=== PATIENT | female | born 1945 | race African-American/Black ===

== ENCOUNTER 2017-06-16 09:04 | Observation (INO) | payer MEDICARE ==
[2017-06-16] MEDS ORDERED: cefTRIAXone\\ROCEPHIN 2 GM in Sodium Chloride 0.9% 100 ML IVPB SCH (09:45)
[2017-06-16] MEDS ORDERED: Fentanyl 100 MCG/2 ML VIAL ONE ×2 (10:04→16:41)
--- NOTE | 2017-06-16 10:46 | HP ---
HISTORY OF PRESENT ILLNESS: Ms. Schulz is 71-year-old black woman. She went to an outside ER [facility] with complaint of abdominal pain, mainly involving the left flank which she has been having for the last 3 days or so. She was evaluated and she was found to have left-sided hydronephrosis along w ith pyelonephritis. In view of this fact, she was transferred here for evaluation and management. She denies any associated fever and she claim that her problem started about 3 days ago. She denies any associated dysuria. PAST MEDICAL HISTORY: Remarkable for hypertension. About 6 weeks ago, she had bowel obstruction req uired laparotomy with subsequent colostomy. PAST SURGICAL HISTORY: Includes hysterectomy. ALLERGIES: She claims to have allergy to MORPHINE and also ASPIRIN. She described mainly side effec t to these medications. SOCIAL HISTORY: She denies any history of cigarette smoking. Denies ETOH abuse. Denies drug abuse; however, she does chew tobacco. FAMILY HISTORY: Reviewed and is not contributory. MEDICATIONS: Prior to admission she was on Augmentin, Protonix, hydrochlorothiazide, Flagyl, and als o potassium chloride. REVIEW OF SYSTEMS: CONSTITUTIONAL: She denies any fever, denies any weakness. HEENT: No headache, no ocular pain, no sore throat, no rhinorrhea, no earache, no epistaxis. NECK: No neck pain, no ne ck stiffness. CARDIOVASCULAR: No shortness of breath. No chest pain. PULMONARY: No coughing. GA STROINTESTINAL: No nausea, no vomiting, no diarrhea. GENITOURINARY: No dysuria, no hematuria. END OCRINOLOGY: No heat or cold intolerance. No polyuria, polydipsia, or polyphagia. MUSCULOSKELETAL: Admits to arthralgias, arthritis. HEMATOLOGY: No abnormal bleeding, no ecchymosis. LYMPHATICS: N o palpable lymphadenopathy, no painful lymphadenopathy. SKIN: No rash, no itching. ALLERGIES: No hayfever. NEUROLOGIC: No seizure. PSYCHIATRIC: No anxiety, no depression. PHYSICAL EXAMINATION: GENERAL: At the current time. She is alert, oriented, in no distress. VITAL SIGNS: Show temperature of 98.6, pulse rate 66, respiratory rate 16, and blood pressure 147/71 . HEAD: Normocephalic and atraumatic. Both of her pupils are equally reacting. Ears and nose are nor mal. Oral mucosa is moist. Pharyngeal area is clear. NECK: Supple. There is no distention of the jugular vein. No lymphadenopathy felt. Thyroid gland not palpable. There is no carotid bruit. CHEST: Symmetrical with regular S1 and S2. LUNGS: Clear. ABDOMEN: Soft. There is a colostomy bag in place. Bowel sounds heard. EXTREMITIES: Show no edema. NEUROLOGIC: She moves all extremities. LABORATORY DATA: Abdomen CT was reported to show left-sided hydronephrosis with pyelonephritis. As mentioned earlier, CBC and BMP are in progress. ASSESSMENT AND PLAN: This is 71-year-old black woman with history of hypertension, status post colos wang few weeks ago who was admitted with complaint of abdominal pain, found to have left-sided hydron ephrosis with pyelonephritis. Patient will be admitted for observation. We will start her on antibi otics. Urology was consulted from the ER.
[2017-06-16] MEDS ORDERED: Ondansetron ODT 4 MG TAB SL PRN (11:06)
[2017-06-16] MEDS ORDERED: Sodium Chloride 0.9% 1,000 ML IV SCH (11:06)
[2017-06-16] MEDS ORDERED: HYDROcodone/Acetaminophen 5/325 mg Tablet PO PRN ×3 (11:06→22:33)
[2017-06-16] MEDS ORDERED: Ondansetron HCl/PF 4 MG/2 ML Vial IVP PRN ×3 (11:06→17:48)
[2017-06-16] MEDS ORDERED: Acetaminophen 325 MG TAB PO PRN (11:06)
[2017-06-16] MEDS ORDERED: Zolpidem Tartrate 5 MG TAB PO PRN (11:10)
[2017-06-16 11:11] VITALS: BMI 31.7
[2017-06-16 12:13] LABS: Anion Gap 17 mmol/L (10-20); BUN (Urea Nitrogen) Less than 4 mg/dL (9.8-20.1); Calc. Creatinine Clearance 91 mL/min (70-130); Calcium 8.5 mg/dL (7.8-10.44); Carbon Dioxide 20 mmol/L (23-31); Chloride 105 mmol/L (98-107); Estimated GFR-MDRD Greater than 90; Glucose 98 mg/dL (83-110); Potassium 3.8 mmol/L (3.5-5.1); Sodium 138 mmol/L (136-145)
[2017-06-16 12:15] LABS: #Basophils 0.1 thou/uL (0.0-0.2); #Lymphocytes 1.9 thou/uL (1.20-3.40); #Monocytes 0.8 thou/uL (0.11-0.59); #Neutrophils 5.8 thou/uL (1.40-6.50); %Basophils 1.3 % (0.0-1.0); %Eosinophils 0.4 % (0.0-10.0); %Lymphocytes 22.2 % (21.0-51.0); %Monocytes 9.7 % (0.0-10.0); %Neutrophils 66.4 % (42.0-75.0); Hemoglobin 10.3 g/dL (12.0-16.0); Mean Corpuscular HGB CONC 32.6 g/dL (32.0-36.0); Mean Corpuscular Hemoglobin 28.8 pg (27.0-31.0); Mean Corpuscular Volume 88.3 fl (81.0-99.0); Mean Platelet Volume 8.2 fL (7.4-10.4); PLT Morphology Comment PLT clumps seen-LOW; Platelet Count 273 thou/uL (130-400); RBC Distribution Width 13.3 % (11.5-14.5); Red Blood Cell (RBC) Count 3.59 mill/uL (4.20-5.40); White Blood Cell (WBC) Count 8.7 thou/uL (4.8-10.8)
[2017-06-16] MEDS: Sodium Chloride 0.9% 1,000 ML IV SCH ×2 (12:58→22:23)
[2017-06-16] MEDS ORDERED: CEFAZOLIN/Water 2 GM/20 ML SYRINGE SLOW IVP SCH (13:15)
--- NOTE | 2017-06-16 14:08 | RAD ---
PORTABLE UPRIGHT FRONTAL ABDOMEN: Date: 06/16/17 COMPARISON: CT abdomen and pelvis dated 06/16/17. HISTORY: Hydronephrosis. FINDINGS: There is residual contrast media within the renal collecting system bilaterally, as well as within bi lateral proximal ureters and the urinary bladder. The calices are blunted on the left and the left kidney is hydronephrotic. The left ureter is promine nt, visualized to the level of the L5 vertebral body. Neither ureter is opacified within the pelvis. IMPRESSION: Hydronephrosis and hydroureter on the left, etiology uncertain. Ureter below the level of the L5 vert ebral body is not assessed on this examination as it is not opacified. No evidence for a renal stone is seen in this region. CT examination at this time may be beneficial given contrast media within the tract. POS: JARED
[2017-06-16] MEDS ORDERED: PHENYLEPHRINE-NS 100 MCG/ML 10 ML SYRINGE ONE (14:35)
[2017-06-16] MEDS ORDERED: Lidocaine 1% PF 5 ML VIAL ONE (14:35)
[2017-06-16] MEDS ORDERED: ePHEDrine/0.9% NaCl/PF SYRINGE 50 mg/10 ml ONE (14:35)
[2017-06-16] MEDS ORDERED: Propofol 200 MG/20 ML VIAL ONE (14:35)
[2017-06-16] MEDS ORDERED: Ondansetron HCl/PF 4 MG/2 ML Vial ONE (14:35)
[2017-06-16] MEDS ORDERED: CEFAZOLIN/Water 2 GM/20 ML SYRINGE ONE (16:10)
[2017-06-16] MEDS ORDERED: Iothalamate Meglumine 60% 50 ML VIAL FS ONE (16:22)
[2017-06-16] MEDS ORDERED: Midazolam HCl 2 mg/2 ml Vial ONE (16:41)
[2017-06-16] MEDS ORDERED: Promethazine HCl 25 MG/ML VIAL SLOW IVP PRN (17:48)
[2017-06-16] MEDS ORDERED: Promethazine HCl 25 MG/ML VIAL IM PRN (17:48)
--- NOTE | 2017-06-16 17:51 | RAD ---
IVP RETROGRADE: Comparison: CT same day. FINDINGS: Satisfactory placement of a ureteral stent. IMPRESSION: Satisfactory placement of a ureteral stent. POS: JARED
--- NOTE | 2017-06-16 19:39 | CON ---
DATE OF CONSULTATION: 06/16/2017 HISTORY OF PRESENT ILLNESS: This is a 71-year-old -Togolese female whom I was asked to see by the Hospitalist team today for left flank pain and hydronephrosis on CAT scan. She presented to the [facility] this morning with 3 days of left flank pain and it sounds like she had some nausea and vomiting last night. No fevers, no chills, no dysuria. She says she has no t felt right for probably a week or two, but has not had this type of pain except for the last couple of days. On 05/21, she had been up in [facility], in town of [place] and she had developed what so unds like a bowel obstruction there, nausea and vomiting that she put up with for a couple of days an d then went into the hospital on the and it sounds like immediately underwent a laparotomy. I d o not have any reports from them, but according to her, a piece of her large intestine was removed an d they could not do a primary reanastomosis, so she ended up with a left-sided colostomy. She does n ot report any pathology that would suggest it was a cancer. She says she believes she was told it wa s scar tissue from prior operations. The colostomy has been working fine. She did have a visit to [facility] on the first and it sounds like at that point she had a superficial skin dehiscence, b ut not a fascial dehiscence. She has been on some Augmentin since then. She has a dressing over her incision, although on exam, it looks like it is pretty much healed up, so she comes in now with flan k pain. No fever, no chills, no dysuria. No prior history of stone disease or urinary tract infecti ons or blood in her urine. Her urinalysis from this morning showed 0-3 red cells, 0-3 white cells, 1 + yeast. Her chemical survey from this morning showed her creatinine of 0.72 and normal liver functi on tests and her white count was normal at 8.7 with a hemoglobin of 10.3 and a platelet count of 273. There is no microbiology set up, though I have asked the nurses here on the floor to be sure urine culture is set up. She was transferred with a diagnosis of hydronephrosis and pyelonephritis to our facility; I am not sure why the diagnosis of pyelonephritis was made. She has been admitted by the H ospitalist team and they requested the consult. Looking at her vital signs, she has had a normal blo od pressure, normal pulse and appears to have been afebrile in the emergency room. She does mention she had a CAT scan done in [place] and I have reviewed that and I asked Dr. Burkett also reviewed as I cannot get the actual report to come up yet. It was done with IV contrast. There is a delay i n excretion into the left kidney compared to the right. There is, in the right kidney, a partially c alcified very small cystic lesion in the upper pole, which is probably an area of old infarct or inju ry. She does not have any obvious ureteral stone. She has a mildly dilated ureter down to the area of the left pelvis near were she does have some evidence of soft tissue edema and were most likely he r surgical procedure was done. There is nothing to suggest a urinoma currently, cannot see the urete r to be dilated, pass the stone, see an obvious stone in this area, but certainly she does have hydro nephrosis. PAST MEDICAL HISTORY: Includes a partial hysterectomy. She had also a procedure done by Dr. Butler in 2013. It was for a benign upper rectal polyp and she underwent a laparoscopic da Willard robotic l ow anterior resection. She has had some shoulder problems, which she takes occasional pain medicine for shoulder surgery. She has a history of hypercholesterolemia, but does not take any medicines for she has a history of hypertension, but has been off those medicines since her last surgery. She crawford s take occasional pain medication. She has been on Augmentin. ALLERGIES: She has an allergy to MORPHINE, which causes her to hallucinate. SOCIAL HISTORY: She does not smoke, but does dip. She does not drink. PHYSICAL EXAMINATION: ABDOMEN: She currently has no severe left CVA tenderness. Her abdomen is soft and nontender. Colos wang appears to be working well. The lower midline incision is no longer open. The CAT scan showed a fluid collection underneath it, but does not really look like an abscess when examining her; probab ly it is just a fluid collection. She has no inguinal adenopathy. IMPRESSION AND PLAN: Left hydro and left flank pain with a normal urinalysis. The concern would be that this could be related to her recent surgery. It does not appear to be a urinoma. We are going to go ahead at this point and get a KUB to see if the contrast has gone down the left ureter and to w here it stops. I think she would best be served by retrograde and a stent. Hopefully, we can get a stent across this area and then let this heal and leave the stent in for a number of weeks and if we are not able to get a stent in, we will look at doing a percutaneous procedure with Radiology tomorro w. We will give her some Ancef contour stitcher, but does not appear that she has pyelonephritis just hydrone phrosis.
--- NOTE | 2017-06-16 20:03 | OP ---
DATE OF PROCEDURE: 06/16/2017. PREOPERATIVE DIAGNOSIS: Left hydronephrosis. POSTOPERATIVE DIAGNOSIS: Left hydronephrosis. PROCEDURE PERFORMED: Cysto, left retrograde, left stent. SURGEON: Dr. Deep Copeland. ANESTHETIC: General. ESTIMATED BLOOD LOSS: Minimal. FINDINGS: There was no evidence of urethral stenosis or diverticulum or lesion. There were two uret eral orifices in normal position. The bladder was free of tumor, foreign body, or stone. Retrograde study showed a normal distal third of the ureter. At about the pelvic brim, there was an area of na rrowing probably 2-3 cm in length and she was hydronephrotic and mildly tortuous above this. There w as no extravasation noted across this. A 0.038 guidewire easily went by this and a 5 Honduran Pollack catheter easily went by this also. Urine was grossly clear above it. A 6 x 26 Polaris double-J sten t was placed and left indwelling. A string was not left attached to it. OPERATIVE TECHNIQUE: After obtaining written and verbal consent from the patient after receiving IV Ancef, she was taken to the operating suite. She was placed in the supine position on the treatment table. PlexiPulses were placed on her lower extremities and turned on. She was given a general anes thetic, oral obturator intubation. She was placed in the dorsal lithotomy position and sterilely pre pped and draped. A guide plant KUB was taken with the fluoroscopy unit. The contrast that had collected f rom her KUB after her IV contrast was given about 11 hours ago had cleared. The bladder was filled a nd emptied a number of times and was examined with 30 and 70-degree lens. Could not use the video ca lucie and monitor was not working, so it was done under direct vision. A 5-Honduran Pollack catheter wa s flushed with contrast passed into the urinary bladder and placed about a cm up the left ureteral or ifice and contrast was slowly injected in a retrograde manner while fluoroscopy was obtained, images were taken of this. A 0.038 guidewire was fed and across through the 5-Honduran Pollack catheter and u p across the point of narrowing and easily went up into the renal pelvis. The Pollack catheter follo wed this up easily. We injected more contrast up in the renal pelvis to fill it out completely. Aft er removing the guidewire and then replaced the guidewire, removed the Pollack catheter and placed a stent over the guidewire, pushing up into place with aid of a pusher so its proximal end coiled in th e renal pelvis and its distal end coiled in the bladder when the wire was removed. There was no extr avasation noted. Plan will be to leave this stent in for a few weeks, maybe look at changing it out in a month, possibly doing ureteroscopy. My guess is that this probably is related to some edema becca und the ureter in this region from a recent surgery. I would think it would be less likely related t o some type of intrinsic ureteral abnormality such as a cancer of the ureter, although this is a poss ibility the timing of it would make it more suspicious that would be related to her recent surgery. It is certainly not any evidence of a filling defect such as a stone or renal papillae in this region to explain it. She was taken out of dorsal lithotomy position, awakened, extubated, and taken by st [facility] to the recovery room.
[2017-06-16] MEDS: Famotidine/PF 20 mg/2ml Vial SLOW IVP SCH (22:22)
[2017-06-16] MEDS: HYDROcodone/Acetaminophen 5/325 mg Tablet PO PRN (22:40)
[2017-06-17] MEDS: Sodium Chloride 0.9% 1,000 ML IV SCH (05:41)
[2017-06-17 08:24] VITALS: TEMP 98.7
[2017-06-17] MEDS: HYDROcodone/Acetaminophen 5/325 mg Tablet PO PRN (08:41)
[2017-06-17] MEDS: Famotidine/PF 20 mg/2ml Vial SLOW IVP SCH (08:41)
[2017-06-17] MEDS ORDERED: CEFTRIAXONE 2GM/50 ML BAG 2 GM in Premix Bag 1 BAG IVPB SCH (10:00)
[2017-06-17] MEDS ORDERED: cefTRIAXone\\ROCEPHIN 2 GM in Sodium Chloride 0.9% 100 ML IVPB SCH (10:00)
[2017-06-17 12:05] VITALS: BP 155/71
--- NOTE | 2017-06-17 17:43 | DIS ---
DATE OF ADMISSION: 06/16/2017 DATE OF DISCHARGE: 06/17/2017 DISCHARGE DIAGNOSES: Left-sided hydronephrosis with pyelonephritis and hypertension. CONSULTANTS ON THE CASE: Dr. Copeland. DISCHARGE MEDICATIONS: Include all home medications plus Macrobid 100 mg p.o. b.i.d. for 2 weeks. BRIEF HOSPITAL COURSE: A 71-year-old pleasant lady, who was apparently in usual state of health, cam e into the hospital because of abdominal pain. Please refer to the admitting physician's H&P for fur ther details. The patient had a CT scan which showed left-sided hydronephrosis and pyelonephritis. Dr. Copeland evaluated the patient and placed a stent. The patient tolerated the procedure well. He s aid that the patient can be discharged today with outpatient followup with them and on the oral antib iotic. The patient is right now medically stable to be discharged. She is doing much better at the time of discharge. PHYSICAL EXAMINATION: VITAL SIGNS: She has a blood pressure of 132/59, afebrile, pulse is 79, respirations 18. GENERAL: Patient is lying in bed, in no apparent distress. HEENT: Atraumatic, normocephalic. Pupils are equally round and reactive to light. Extraocular move ments are intact. Mucous membranes are moist. NECK: Supple. No JVD. CHEST: Breath sounds. There are no rales or rhonchi. HEART: S1, S2. No murmurs or gallops. ABDOMEN: Soft. Colostomy bag in place. EXTREMITIES: No cyanosis, clubbing, or edema. Distal pulses present. NEUROLOGIC: Alert, awake, oriented. No cranial deficits. No sensorimotor deficits. The patient is right now medically stable to be discharged. She is asked to follow up with PCP and Nicole Copeland as an outpatient. She understands all this. She is asked to come back to the emergency ro om in case symptoms recur. Total time for this discharge took 35 minutes.
== END 2017-06-17 13:05 | disposition home or self-care (01) ==
LOC: ERS 09:04 → 2SW 11:02
PROVIDERS: ADMIT Hospitalist; ATTEND Hospitalist
PROC: 0T778DZ Dilation of Left Ureter with Intraluminal Device, Via Natural or Artificial Opening Endoscopic (ICD-10-PCS; principal; 2017-06-16)
DX: N13.6 Pyonephrosis (principal); I10 Essential (primary) hypertension; K21.9 Gastro-esophageal reflux disease without esophagitis; Z93.3 Colostomy status; E78.00 Pure hypercholesterolemia, unspecified; Z79.2 Long term (current) use of antibiotics; Z79.899 Other long term (current) drug therapy; Z88.5 Allergy status to narcotic agent; Z88.8 Allergy status to other drugs, medicaments and biological substances; Z90.49 Acquired absence of other specified parts of digestive tract; Z90.711 Acquired absence of uterus with remaining cervical stump; Z98.890 Other specified postprocedural states
CPT/HCPCS: 52332; 74018; 74420; 80048; 85025; 96361 ×2; 96365; 96366; 96375 ×2; 96376; 99285; C1758; G0378; J0696; 36415; J2001; J2250; J2405; J2704; J3010; J7050; Q9961; S0028

== ENCOUNTER 2017-07-29 06:44 | Day surgery (SDC) | payer MEDICARE ==
[2017-07-26 11:18] VITALS: BMI 30.9
[2017-07-29 08:50] LABS: INR-International Normal Ratio 1.1; PTT 29.9 SEC (22.9-36.1); Prothrombin Time 14.2 SEC (12.0-14.7)
[2017-07-29 08:51] LABS: #Basophils 0.1 thou/uL (0.0-0.2); #Eosinphils 0.1 thou/uL (0.0-0.7); #Lymphocytes 2.1 thou/uL (1.20-3.40); #Monocytes 0.6 thou/uL (0.11-0.59); #Neutrophils 3.2 thou/uL (1.40-6.50); %Eosinophils 2.3 % (0.0-10.0); %Lymphocytes 34.8 % (21.0-51.0); %Monocytes 9.3 % (0.0-10.0); %Neutrophils 52.6 % (42.0-75.0); Hemoglobin 10.4 g/dL (12.0-16.0); Mean Corpuscular HGB CONC 31.4 g/dL (32.0-36.0); Mean Corpuscular Hemoglobin 27.2 pg (27.0-31.0); Mean Corpuscular Volume 86.6 fl (81.0-99.0); Mean Platelet Volume 8.2 fL (7.4-10.4); Platelet Count 293 thou/uL (130-400); RBC Distribution Width 12.8 % (11.5-14.5); Red Blood Cell (RBC) Count 3.82 mill/uL (4.20-5.40); White Blood Cell (WBC) Count 6.1 thou/uL (4.8-10.8)
[2017-07-29 08:56] LABS: Anion Gap 13 mmol/L (10-20); BUN (Urea Nitrogen) 12 mg/dL (9.8-20.1); Calc. Creatinine Clearance 75 mL/min (70-130); Calcium 9.7 mg/dL (7.8-10.44); Carbon Dioxide 24 mmol/L (23-31); Chloride 102 mmol/L (98-107); Estimated GFR-MDRD 80; Glucose 91 mg/dL (83-110); Potassium 3.7 mmol/L (3.5-5.1); Sodium 135 mmol/L (136-145)
[2017-07-29] MEDS ORDERED: CEFAZOLIN/Water 2 GM/20 ML SYRINGE ONE (10:20)
[2017-07-29] MEDS ORDERED: Fentanyl 100 MCG/2 ML VIAL ONE ×2 (10:28→12:12)
[2017-07-29] MEDS ORDERED: Iothalamate Meglumine 60% 50 ML VIAL FS ONE (10:34)
[2017-07-29] MEDS ORDERED: Furosemide 20 MG/2 ML VIAL ONE (11:06)
[2017-07-29] MEDS ORDERED: Morphine 4 MG/ML Carpuject SLOW IVP PRN (12:14)
[2017-07-29] MEDS ORDERED: Non-Formulary Medication 1 EACH PO PRN (12:14)
[2017-07-29] MEDS ORDERED: Promethazine HCl 25 MG/ML VIAL IM/IV PRN (12:14)
[2017-07-29] MEDS ORDERED: Ondansetron HCl/PF 4 MG/2 ML Vial IVP PRN (12:14)
--- NOTE | 2017-07-29 12:27 | OP ---
DATE OF PROCEDURE: 07/29/2017 PREOPERATIVE DIAGNOSIS: Left ureteral obstruction. POSTOPERATIVE DIAGNOSIS: Left ureteral obstruction. PROCEDURE PERFORMED: Cysto, removal of stent, left retrograde, and replacement of left stent. SURGEON: Dr. Deep Copeland. ANESTHETIC: General. ESTIMATED BLOOD LOSS: Minimal. FINDINGS: There was no evidence of bladder tumor, foreign body, or stone. Old stent was removed; it was still patent. The guidewire went up a bit easy. Retrograde study showed a normal-appearing ure ter with a wire up in place. The wire was removed then in contrast, but not drain pass the mid urete r. On retrograde study, we waited probably 30 minutes to do this and gave her indigo carmine and Las ix. We then injected contrast in a retrograde manner and it goes up to about to just below this area and does not go up easily by it, indicating it is probably an area of obstruction stone in the mid u reter. Guidewires were placed without difficulty. New stent was passed over the guidewire and pushe d up in place with aid of a pusher without difficulty. OPERATIVE TECHNIQUE: After obtaining written and verbal consent from the patient, she was taken to [facility] operating suite. She was given Ancef already. She was given general anesthetic, oral obturator i ntubation, placed in the dorsal lithotomy position and sterilely prepped and draped. Cystoscopy was performed with a 22-Kyrgyz sheath. This was well lubricated and passed under direct vision through [facility] female urethra into the urinary bladder with the aid of a 30-degree lens and a video camera monito r. The bladder was filled and emptied a number of times. The distal end of the indwelling stent was brought out through the urethral meatus. A guidewire was fed up across, so the stent was removed ov er the guidewire and discarded. A 5-Kyrgyz Pollack catheter was flushed with contrast, placed into [facility] left ureteral orifice about a cm up with contrast injected in a retrograde manner filled out this system. The wire was then removed. The distal half of the ureter cleared easily. The proximal half did not. She was given indigo carmine and Lasix. We waited over 20 minutes after this up to closer to 30 minutes without effluxing on this side. We repeated the retrograde study with about 5 mL of c ontrast without the wire across and it went up to the mid ureter, would not go up above it. The guid ewire was then fed back up across this area without difficulty. A stent was passed over this and pus hed up in place with aid of a pusher so its proximal end coiled in the renal pelvis, distal end coile d in the bladder when the wire was removed. The bladder was drained, the instruments were removed. She was taken out of dorsal lithotomy position, awakened, extubated, and taken by stretcher to the re covery room.
--- NOTE | 2017-07-29 14:47 | RAD ---
RETROGRADE URETEROGRAM LEFT URETERAL STENT PLACEMENT. Technique: 17 intraoperative images obtained of the left abdomen. FINDINGS: Images demonstrate placement of a cystoscope with catheterization and injection of the left ureter an d collecting system. There has been placement of a left ureteral stent, proximal portion of the left renal pelvis and the distal portion in the bladder. There is an area of caliber irregularity in the d istal left ureter several centimeters proximal to the left ureterovesicular junction. This may repres ent area of left distal ureteral circumferential mass either extrinsic or within the left ureter. No obvious evidence of obstructing calculi seen. IMPRESSION: Placement of a left ureteral stent across a distal left ureteral area of stenosis. POS: [facility]ARED
[2017-07-29] MEDS ORDERED: Ondansetron HCl/PF 4 MG/2 ML Vial ONE (15:12)
[2017-07-29] MEDS ORDERED: PROPOFOL 200 MG/20 ML VIAL ONE (15:12)
[2017-07-29] MEDS ORDERED: Glycopyrrolate 0.2 MG/ML 5 ML SYRINGE ONE (15:12)
[2017-07-29] MEDS ORDERED: PHENYLEPHRINE-NS 100 MCG/ML 10 ML SYRINGE ONE (15:12)
[2017-07-29] MEDS ORDERED: Dexamethasone 20 MG/5 ML VIAL ONE (15:12)
[2017-07-29] MEDS ORDERED: Lidocaine 1% PF 5 ML VIAL ONE (15:12)
[2017-07-29] MEDS ORDERED: ePHEDrine/0.9% NaCl/PF SYRINGE 50 mg/10 ml ONE (15:12)
== END 2017-07-29 13:21 | disposition home or self-care (01) ==
LOC: SDC 06:44
PROVIDERS: ATTEND Urology
PROC: 0T778DZ Dilation of Left Ureter with Intraluminal Device, Via Natural or Artificial Opening Endoscopic (ICD-10-PCS; principal; 2017-07-29)
DX: N13.5 Crossing vessel and stricture of ureter without hydronephrosis (principal); I10 Essential (primary) hypertension; E78.00 Pure hypercholesterolemia, unspecified; Z88.5 Allergy status to narcotic agent; Z88.8 Allergy status to other drugs, medicaments and biological substances; Z90.49 Acquired absence of other specified parts of digestive tract; Z90.710 Acquired absence of both cervix and uterus; Z98.890 Other specified postprocedural states
CPT/HCPCS: 36415; 74420; 80048; 85025; 85610; 85730; 96374; C1758; J1100; J1940; J2001; J2405; J2704; J3010; Q9961

== ENCOUNTER 2017-10-23 09:46 | Day surgery (SDC) | payer MEDICARE ==
[2017-10-22 10:30] VITALS: BMI 31.8
[2017-10-23 11:14] LABS: Mean Corpuscular HGB CONC 33.3 g/dL (32.0-36.0); Mean Corpuscular Volume 84.3 fl (81.0-99.0); Mean Platelet Volume 7.9 fL (7.4-10.4); Platelet Count 250 thou/uL (130-400); RBC Distribution Width 13.1 % (11.5-14.5); Red Blood Cell (RBC) Count 3.91 mill/uL (4.20-5.40); White Blood Cell (WBC) Count 6.2 thou/uL (4.8-10.8)
[2017-10-23] MEDS ORDERED: CEFAZOLIN/Water 2 GM/20 ML SYRINGE ONE (11:18)
[2017-10-23] MEDS ORDERED: Iothalamate Meglumine 60% 50 ML VIAL FS ONE (12:19)
[2017-10-23] MEDS ORDERED: Fentanyl 100 MCG/2 ML VIAL ONE (12:20)
[2017-10-23] MEDS ORDERED: Ondansetron HCl/PF 4 MG/2 ML Vial ONE (12:46)
[2017-10-23] MEDS ORDERED: Dexamethasone 20 MG/5 ML VIAL ONE (12:46)
[2017-10-23] MEDS ORDERED: PROPOFOL 200 MG/20 ML VIAL ONE (12:46)
[2017-10-23] MEDS ORDERED: Lidocaine 1% PF 5 ML VIAL ONE (12:46)
[2017-10-23] MEDS ORDERED: ePHEDrine/0.9% NaCl/PF SYRINGE 50 mg/10 ml ONE (12:46)
[2017-10-23] MEDS ORDERED: Ketorolac Tromethamine 30 MG/ML VIAL ONE (12:46)
[2017-10-23 12:54] LABS: INR-International Normal Ratio 1.1; PTT 30.4 SEC (22.9-36.1); Prothrombin Time 13.8 SEC (12.0-14.7)
--- NOTE | 2017-10-23 15:10 | RAD ---
RETROGRADE URETEROGRAM: History: Ureteral obstruction. FINDINGS: Intraoperative fluoroscopy was provided for retrograde study as performed by Dr. Rubio. Multiple spo t fluoroscopic images show contrast opacification of a mildly distended left renal collecting system and nondilated ureter. Final image shows double pigtail stent over the course of the left ureter. POS: [facility]
--- NOTE | 2017-10-23 20:35 | EKG ---
Test Reason : PREOP Blood Pressure : / mmHG Vent. Rate : 046 BPM Atrial Rate : 046 BPM P-R Int : 166 ms QRS Dur : 074 ms QT Int : 500 ms P-R-T Axes : 060 -07 076 degrees QTc Int : 437 ms Sinus bradycardia Nonspecific T wave abnormality Abnormal ECG When compared with ECG of 17-AUG-2013 07:06, Nonspecific T wave abnormality no longer evident in Anterior leads Confirmed by MELISSA HAMILTON, . SMarli (4) on 10/23/2017 8:34:56 PM Referred By: LETICIA Confirmed By:DR. Mike TORRES MD
--- NOTE | 2017-10-24 09:16 | OP ---
DATE OF PROCEDURE: 10/23/2017 PREOPERATIVE DIAGNOSIS: Left ureteral obstruction, managed with stent. POSTOPERATIVE DIAGNOSIS: Left ureteral obstruction, managed with stent. PROCEDURE PERFORMED: Cysto, discontinue left stent, left retrograde, left rigid ureteroscopy, biopsy , and left stent replacement. SURGEON: Dr. Deep Copeland. ANESTHETIC: General. ESTIMATED BLOOD LOSS: Minimal. DRAINS: A 6 x 24 Polaris double-J stent without string attached. FINDINGS: There is a 2-3 cm segment of the extending to the mid ureter, just above the pelvic and at the pelvic brim, does not drain well from above or below this. She does have also edema of the uret eral mucosa as we approach this region. I think is probably just related to the stent being, but bio psy of this just below and just above the area of scar was done. OPERATIVE TECHNIQUE: Obtained written and verbal consent from the patient, she was taken the operati ng suite. She was given a general anesthetic, oral obturator intubation. PlexiPulses were placed on her lower extremities and turned on. She was placed in dorsal lithotomy position, sterilely prepped and draped. Cystoscopy was performed with a 22-Austrian sheath. This was well lubricated, passed und er direct vision through the female urethra into the bladder with aid of a 30-degree lens, a video ca lucie and monitor. The bladder was filled and emptied a number of times. At this point, the stent wa s grasped and brought out the ureteral meatus and a guidewire was fed through and the stent was remov ed from the guidewire. A Pollack catheter was then placed over the guidewire and the guidewire was r emoved. The Pollack catheter was a couple of centimeters in. Contrast was injected and we will go u p the ureter and then would stop and come back around, but not go proximal to the region in the lower third to mid ureter. A guide wire would easily go by this contrast. We then set the guidewire by t with the open-ended catheter past this, removed the guidewire and then had filled up the proximal ureter, renal pelvis with contrast and then removed the stent and watched the distal ureter does kali ar, I cannot compensate the proximal ureter ever clears contrast after watching it for a number of mi nutes. For this reason, a guidewire was replaced. We then brought in a small caliber rigid ureteros cope and went adjacent to the guidewire up the ureter with the above findings. You could get the ure teroscope by the area that was obstructed, although there was some probably scarring and some fixatio n to the retroperitoneum in this region, which I think is probably just scarring. We went ahead and used biopsy from just above and just below this region. This was done under direct vision. I did no t try to biopsy this area of white dense material itself, to me it looks like it is most likely just an injury and scar. After this was done, cystoscope and a stent was placed over the guidewire and pushed up in placed with aid of a pusher, so its proximal end coils in the renal pelvis and its d istal end coils in the bladder and the wire was removed. The bladder straining instruments were deidra yocasta. She was taken out of dorsal lithotomy position, awakened, extubated, and taken by stretcher to the recovery room.
== END 2017-10-23 15:30 | disposition home or self-care (01) ==
LOC: SDC 09:46
PROVIDERS: ATTEND Urology
PROC: 0TB78ZX Excision of Left Ureter, Via Natural or Artificial Opening Endoscopic, Diagnostic (ICD-10-PCS; principal; 2017-10-23)
PROC: 0T778DZ Dilation of Left Ureter with Intraluminal Device, Via Natural or Artificial Opening Endoscopic (ICD-10-PCS; 2017-10-23)
PROC: 0TP98DZ Removal of Intraluminal Device from Ureter, Via Natural or Artificial Opening Endoscopic (ICD-10-PCS; 2017-10-23)
DX: N13.5 Crossing vessel and stricture of ureter without hydronephrosis (principal); I10 Essential (primary) hypertension; K21.9 Gastro-esophageal reflux disease without esophagitis; E78.00 Pure hypercholesterolemia, unspecified; F17.220 Nicotine dependence, chewing tobacco, uncomplicated; E78.5 Hyperlipidemia, unspecified; Z79.899 Other long term (current) drug therapy; Z88.5 Allergy status to narcotic agent; Z88.8 Allergy status to other drugs, medicaments and biological substances
CPT/HCPCS: 52332; 52354; 74420; 85027; 85610; 85730; 88305; 88341; 88342; 93005; C1758; 93010; J0131; J1100; J1885; J2001; J2405; J2704; J3010; Q9961

== ENCOUNTER 2018-02-17 10:25 | Outpatient (CLI) | payer MEDICARE, MEDICAID ==
[2018-02-17 11:34] LABS: Hemoglobin 12.3 g/dL (12.0-16.0); Mean Corpuscular HGB CONC 32.3 g/dL (32.0-36.0); Mean Corpuscular Hemoglobin 27.8 pg (27.0-31.0); Mean Corpuscular Volume 86.2 fL (78.0-98.0); Mean Platelet Volume 7.8 fL (7.4-10.4); Platelet Count 314 thou/uL (130-400); RBC Distribution Width 12.1 % (11.5-14.5); Red Blood Cell (RBC) Count 4.41 mill/uL (4.20-5.40); White Blood Cell (WBC) Count 6.4 thou/uL (4.8-10.8)
[2018-02-17 11:39] LABS: Prothrombin Time 13.7 SEC (12.0-14.7)
[2018-02-17 12:00] LABS: Anion Gap 15 mmol/L (10-20); BUN (Urea Nitrogen) 21 mg/dL (9.8-20.1); Calc. Creatinine Clearance 0 mL/min (70-130); Calcium 9.1 mg/dL (7.8-10.44); Carbon Dioxide 22 mmol/L (23-31); Chloride 102 mmol/L (98-107); Estimated GFR-MDRD 59; Glucose 79 mg/dL (83-110); Potassium 3.8 mmol/L (3.5-5.1); Sodium 135 mmol/L (136-145)
--- NOTE | 2018-02-23 14:26 | EKG ---
Test Reason : Blood Pressure : / mmHG Vent. Rate : 049 BPM Atrial Rate : 049 BPM P-R Int : 166 ms QRS Dur : 082 ms QT Int : 472 ms P-R-T Axes : 056 007 068 degrees QTc Int : 426 ms Marked sinus bradycardia Abnormal ECG When compared with ECG of 23-OCT-2017 11:08, No significant change was found Confirmed by MADIHA CATALAN (2) on 02/23/2018 2:26:11 PM Referred By: DAVE Confirmed By:MADIHA CATALAN
== END 2018-02-17 10:26 | disposition home or self-care (01) ==
LOC: LABBT 10:25
PROVIDERS: ATTEND Urology
DX: Z01.818 Encounter for other preprocedural examination (principal); N13.5 Crossing vessel and stricture of ureter without hydronephrosis
CPT/HCPCS: 80048; 85027; 85610; 85730; 93005; 93010

== ENCOUNTER 2018-02-24 06:15 | Day surgery (SDC) | payer MEDICARE, MEDICAID ==
[2018-02-17 10:39] VITALS: BMI 31.8
[2018-02-24] MEDS ORDERED: Fentanyl 100 MCG/2 ML VIAL ONE (06:53)
[2018-02-24] MEDS ORDERED: Iothalamate Meglumine 60% 50 ML VIAL FS ONE ×2 (07:07→08:03)
[2018-02-24] MEDS ORDERED: CEFAZOLIN/Water 2 GM/20 ML SYRINGE ONE (07:29)
--- NOTE | 2018-02-24 09:07 | RAD ---
THREE IMAGES FROM LEFT IVP RETROGRADE EVALUATION: COMPARISON: Prior exam dated 10/23/17. FINDINGS: There is a left double-J ureteral stent. The stent projects within the expected position. The 2nd s ubmitted image demonstrates manipulation of the ureteral stent caudad with the proximal aspect of the stent seen within the distal left ureter. Subsequent final image submitted demonstrates a ureteral stent in place with retrograde opacification of the left renal collecting system. No definite visibl e stone is evident. There is slight prominence of the pelvocaliceal system which is nonspecific. IMPRESSION: 1. Left ureteral stent. 2. Moderate amount of residual contrast within the pevocalyceal system. POS: [facility]
--- NOTE | 2018-02-24 10:37 | OP ---
DATE OF PROCEDURE: 02/24/2018. PREOPERATIVE DIAGNOSIS: Left ureteral obstruction. POSTOPERATIVE DIAGNOSIS: Left ureteral obstruction. PROCEDURE PERFORMED: Cystoscopy, discontinue left stent, left retrograde, left stent replacement. SURGEON: Dr. Deep Copeland. ANESTHETIC: TIVA. ESTIMATED BLOOD LOSS: Minimal. FINDINGS: The bladder was free of tumor, foreign body, or stone. There was a stent in left ureteral orifice. Retrograde study showed contrast going up the ureter and stopping just distal to the sacro iliac joint. It was difficult to get the proximal aspect of this area of narrowing and stricture vis ualized. We took multiple images of this. I think this was just open enough for contrast to get thr ough it, so we did not get contrast to build up enough to see the proximal point well. It appears to be just above or just into the sacroiliac joint region of the bony pelvis proximally. OPERATIVE TECHNIQUE: Obtain written and verbal consent from the patient after receiving IV antibioti cs, she was taken to the operating suite. She was placed in supine position on the treatment table. PlexiPulses were placed on her lower extremities and turned on. She was given a general anesthetic, oral obturator intubation, placed in dorsal lithotomy position, sterilely prepped and draped. Cysto scopy was performed with a 22-[place] sheath. Fluoroscopy was used to obtain images. She was positio salina so that the left side was adequately visualized. The indwelling stent was grasped with a pair of flexible grasping forceps and brought out through the urethral meatus with aid of a video camera mon itor, 30-degree lens and a 22-[place] sheath. A guidewire was fed up this and then a Pollack catheter was fed over the guidewire, so that it was proximal to the stricture and then the wire was removed. Contrast was then used to fill up the collecting system. The renal pelvis and caliceal system were dilated, really cannot get the ureter itself to dilate. As we were injecting, we brought the open-en ded catheter down past the point of the stricture and then we could see where the distal end of the s tricture was easily and image was taken of this. We then refilled the syringe and did this again zhanna cing more contrast proximally and then looking at the images and taking images with the contrast came down the left ureter. We were never able to show extremely well the images showing the proximal ext ent of the stricture, but appears to be over the sacroiliac joint region of the bony pelvis. At the end of this part of the procedure, a guidewire was fed up the left ureter and a stent was placed over the guidewire for a 4.8 x 24 cm placed over it and pushed up into place, so its proximal end coiled in the renal pelvis, distal end coiled in the bladder when the wire was removed string was not left attached. The bladder was drained, instruments were removed. The patient was awakened, extubat ed, and taken by stretcher to the recovery room.
[2018-02-24] MEDS ORDERED: Ondansetron HCl/PF 4 MG/2 ML Vial ONE (13:00)
[2018-02-24] MEDS ORDERED: PROPOFOL 200 MG/20 ML VIAL ONE (13:00)
[2018-02-24] MEDS ORDERED: Lidocaine 1% PF 5 ML VIAL ONE (13:00)
== END 2018-02-24 10:00 | disposition home or self-care (01) ==
LOC: SDC 06:15
PROVIDERS: ATTEND Urology
PROC: 0T778DZ Dilation of Left Ureter with Intraluminal Device, Via Natural or Artificial Opening Endoscopic (ICD-10-PCS; principal; 2018-02-24)
PROC: 0TP98DZ Removal of Intraluminal Device from Ureter, Via Natural or Artificial Opening Endoscopic (ICD-10-PCS; 2018-02-24)
DX: N13.5 Crossing vessel and stricture of ureter without hydronephrosis (principal); I10 Essential (primary) hypertension; Z88.6 Allergy status to analgesic agent; Z88.8 Allergy status to other drugs, medicaments and biological substances
CPT/HCPCS: 52332; 74420; C1758; J3010; Q9961

== ENCOUNTER 2018-06-30 06:13 | Day surgery (SDC) | payer MEDICARE, MEDICAID ==
[2018-06-19 13:46] VITALS: BMI 35.4
[2018-06-30 07:01] LABS: #Basophils 0.1 thou/uL (0.0-0.2); #Eosinphils 0.1 thou/uL (0.0-0.7); #Monocytes 0.6 thou/uL (0.11-0.59); #Neutrophils 3.8 thou/uL (1.40-6.50); %Basophils 1.3 % (0.0-1.0); %Eosinophils 1.9 % (0.0-10.0); %Lymphocytes 30.3 % (21.0-51.0); %Monocytes 9.5 % (0.0-10.0); %Neutrophils 57.1 % (42.0-75.0); Hemoglobin 12.1 g/dL (12.0-16.0); Mean Corpuscular HGB CONC 32.8 g/dL (32.0-36.0); Mean Corpuscular Hemoglobin 28.2 pg (27.0-31.0); Mean Platelet Volume 7.8 fL (7.4-10.4); Platelet Count 308 thou/uL (130-400); RBC Distribution Width 11.8 % (11.5-14.5); White Blood Cell (WBC) Count 6.6 thou/uL (4.8-10.8)
[2018-06-30 07:20] LABS: Anion Gap 11 mmol/L (10-20); BUN (Urea Nitrogen) 25 mg/dL (9.8-20.1); Calc. Creatinine Clearance 58 mL/min (70-130); Calcium 9.8 mg/dL (7.8-10.44); Carbon Dioxide 26 mmol/L (23-31); Chloride 102 mmol/L (98-107); Estimated GFR-MDRD 52; Glucose 101 mg/dL (83-110); Potassium 3.9 mmol/L (3.5-5.1); Sodium 135 mmol/L (136-145)
[2018-06-30] MEDS ORDERED: CEFAZOLIN 2 GM/50 ML BAG ONE (07:35)
[2018-06-30] MEDS ORDERED: Iothalamate Meglumine 60% 50 ML VIAL FS ONE (08:37)
[2018-06-30] MEDS ORDERED: Fentanyl 100 MCG/2 ML VIAL ONE (08:43)
--- NOTE | 2018-06-30 10:49 | OP ---
DATE OF PROCEDURE: 06/30/2018 PREOPERATIVE DIAGNOSIS: Left ureteral obstruction, managed with left ureteral stent. POSTOPERATIVE DIAGNOSIS: Left ureteral obstruction, managed with left ureteral stent. PROCEDURES PERFORMED: Cysto, removal of stent, left retrograde, and left stent replacement. ANESTHETIC: General. ESTIMATED BLOOD LOSS: None. FINDINGS: There was no evidence of bladder tumor, foreign body, or stone. Left-sided ureteral stent in normal position. DRAINS PLACED: A 4.8 x 24 cm left double-J stent without a string attached. OPERATIVE TECHNIQUE: After obtaining written and verbal consent from the patient after receiving IV antibiotics, she was taken to the operating suite. She was placed in the supine position on the treatment table. PlexiPulses were placed on her lower extremities and turned on. She was given a general anesthetic and oral obturator intubation. She was placed in the dorsal lithotomy position and sterilely prepped and draped. Cystoscopy was performed with a 22-[place]izen [place] sheath. This was well lubricated and passed under direct vision through the female urethra into the urinary bladder with aid of video camera and monitor. The bladder was filled and emptied number of times. This was then was examined with both 30 and 70-degree lens. There was no tumor, foreign body, or stone, just a left-sided ureteral stent. The distal end of the stent was grasped with a flexible grasping forceps with aid of a 30-degree lens and video camera and monitor. It was brought out through the ureteral meatus. A guidewire was fed up across this and the stent was removed over a guidewire. A 5-Citizen [place] Milmay catheter was backloaded through the cystoscope and along the guidewire and placed up to the area of the proximal ureter. The wire was removed and contrast was injected probably 15 mL. This revealed the location of the renal pelvis and collecting system and proximal ureter. The wire was replaced. The open-ended catheter was removed and the stent was placed over the guidewire and pushed up into place with the aid of a pusher, so its proximal end coiled in the renal pelvis and its distal end coiled in the bladder when the wire was removed. The bladder was drained. The instruments were removed. She was taken out of dorsal lithotomy position, awakened, extubated, and taken by stretcher to recovery room. Job ID: [id number]
--- NOTE | 2018-06-30 10:51 | RAD ---
RETROGRADE PYELOGRAM: History: Stent placement. FINDINGS: This is a series of five c-arm images which show placement of a left ureteral stent. IMPRESSION: Placement of left ureteral stent which appears to be in good position. POS: TPC
[2018-06-30] MEDS ORDERED: Succinylcholine Chloride 20 MG/ML 10 ml SYRINGE FS ONE (14:16)
[2018-06-30] MEDS ORDERED: Glycopyrrolate 0.2 MG/ML 5 ML SYRINGE ONE (14:16)
[2018-06-30] MEDS ORDERED: PROPOFOL 200 MG/20 ML VIAL ONE (14:16)
[2018-06-30] MEDS ORDERED: Ondansetron PF 4 MG/2 ML Vial ONE (14:16)
[2018-06-30] MEDS ORDERED: Lidocaine 1% PF 5 ML VIAL ONE (14:16)
== END 2018-06-30 11:40 | disposition home or self-care (01) ==
LOC: SDC 06:13
PROVIDERS: ATTEND Urology
PROC: 0T778DZ Dilation of Left Ureter with Intraluminal Device, Via Natural or Artificial Opening Endoscopic (ICD-10-PCS; principal; 2018-06-30)
PROC: 0TP98DZ Removal of Intraluminal Device from Ureter, Via Natural or Artificial Opening Endoscopic (ICD-10-PCS; 2018-06-30)
DX: N13.5 Crossing vessel and stricture of ureter without hydronephrosis (principal); K21.9 Gastro-esophageal reflux disease without esophagitis; I10 Essential (primary) hypertension; F17.220 Nicotine dependence, chewing tobacco, uncomplicated; E78.5 Hyperlipidemia, unspecified; Z79.899 Other long term (current) drug therapy; Z88.5 Allergy status to narcotic agent; Z88.8 Allergy status to other drugs, medicaments and biological substances
CPT/HCPCS: 52332; 74420; 80048; 85025; C1758; 36415; J2001; J2405; J2704; J3010; Q9961

== ENCOUNTER 2018-09-02 04:23 | Emergency (ER) | payer MEDICARE, MEDICAID ==
[2018-09-02 05:16] LABS: #Eosinphils 0.1 thou/uL (0.0-0.7); #Lymphocytes 1.5 thou/uL (1.20-3.40); #Monocytes 0.6 thou/uL (0.11-0.59); #Neutrophils 6.1 thou/uL (1.40-6.50); %Basophils 0.3 % (0.0-1.0); %Eosinophils 0.6 % (0.0-10.0); %Lymphocytes 18.5 % (21.0-51.0); %Monocytes 7.1 % (0.0-10.0); %Neutrophils 73.5 % (42.0-75.0); Hemoglobin 12.2 g/dL (12.0-16.0); Mean Corpuscular Hemoglobin 28.2 pg (27.0-31.0); Mean Corpuscular Volume 85.6 fL (78.0-98.0); Mean Platelet Volume 7.8 fL (7.4-10.4); Platelet Count 311 thou/uL (130-400); RBC Distribution Width 11.9 % (11.5-14.5); Red Blood Cell (RBC) Count 4.33 mill/uL (4.20-5.40); White Blood Cell (WBC) Count 8.2 thou/uL (4.8-10.8)
[2018-09-02 05:39] LABS: ALT (SGPT) 36 U/L (8-55); AST (SGOT) 66 U/L (5-34); Albumin 3.9 g/dL (3.4-4.8); Alkaline Phosphatase 71 U/L (40-150); Anion Gap 13 mmol/L (10-20); BUN (Urea Nitrogen) 20 mg/dL (9.8-20.1); Bilirubin, Total 0.9 mg/dL (0.2-1.2); Calc. Creatinine Clearance 0 mL/min (70-130); Calcium 9.6 mg/dL (7.8-10.44); Carbon Dioxide 24 mmol/L (23-31); Chloride 100 mmol/L (98-107); Estimated GFR-MDRD 51; Globulin 4.3 g/dL (2.4-3.5); Glucose 124 mg/dL (83-110); Lipase 68 U/L (8-78); Potassium 3.9 mmol/L (3.5-5.1); Protein, Total 8.2 g/dL (6.0-8.3); Sodium 133 mmol/L (136-145)
--- NOTE | 2018-09-02 08:03 | ULT ---
FRight upper quadrant ultrasound CLINICAL INDICATION: Pain FINDINGS: No focal hepatic lesion. Gallbladder wall is thickened at 5-6 mm with pericholecystic edema . There is increased echogenicity of the gallbladder lumen with shadowing, compatible with cholelithi asis. Common duct is borderline in size at 7 mm. No ascites is visualized. IMPRESSION: Sonographic findings indicative of cholecystitis with associated cholelithiasis. Recommen d surgical consultation for further assessment. Borderline size common duct. Correlate with biliary laboratory values.
[2018-09-02] MEDS ORDERED: Piperacillin/Tazobactam 3.375 GM VIAL ONE (08:22)
--- NOTE | 2018-09-02 08:22 | CT ---
CT OF THE ABDOMEN AND PELVIS WITH CONTRAST: INDICATION: Abdominal pain. FINDINGS: Lung bases are grossly clear aside from mild volume loss. There is wall prominence and hypodensity o f the gallbladder, which is moderately distended. No focal hepatic or splenic lesion. There is a le ft double-J ureteral stent with mild prominence of the left renal pelvis. There is a stable calcific ation at the anterior aspect of the superior pole right kidney indicating a complex cystic lesion, al though incompletely evaluated on the basis of this exam. Left lower quadrant ostomy is again seen. The bowel is incompletely evaluated without the presence of enteric contrast. There is no disseminat ed free air. Suture material is again seen within the posterior pelvis which is mildly distended by retained fecal material. No acute osseous pathology is seen. IMPRESSION: 1. Left double J ureteral stent is in place. There is mild distention of the left renal pelvis with a slight urothelial prominence. Recommend clinical correlation in this regard 2. Stable small partially calcified cystic-appearing lesion of the superior pole right kidney. 3. Left lower quadrant ostomy remains without obvious associated inflammation. 4. Findings which may relate to cholecystitis, incompletely assessed as discussed above. Recommend dedicated gallbladder ultrasound. POS: JOSE
[2018-09-02] MEDS ORDERED: Fentanyl 100 MCG/2 ML VIAL ONE (08:26)
[2018-09-02] MEDS ORDERED: ISOVUE-370 76%-LOCM 1 ML ONE (09:20)
--- NOTE | 2018-09-02 10:33 | HP ---
HISTORY OF PRESENT ILLNESS: Ms. Schulz is a 73-year-old woman, presented to emergency department with insidious onset of postprandial epigastric abdominal pain, which started approximately 2000 hours after dinner consisting of barbecue ribs, coleslaw, and corn. Pain was described as sharp, rated at 8/10 and radiating to her back. Pain was associated with one episode of nausea, but no emesis. She admits to some chills, but no fevers. The pain has not been relieved with over the counter remedies. She did take a dose of [place], which she normally takes for chronic pain without any relief. Currently, she is awake and alert. She has received intravenous analgesics here in the emergency department, now rates the pain at 5/10. PAST MEDICAL HISTORY: Pertinent for essential hypertension and gastroesophageal reflux disease. PAST SURGICAL HISTORY: Pertinent for partial abdominal hysterectomy through a low Pfannenstiel incision, laparoscopic DaVinci robotic low anterior resection five years ago, multiple left ureteral stent placements for urethral obstruction, and emergency exploratory laparotomy with resultant colostomy one year ago in [place], [place]. SOCIAL HISTORY: The patient lives at home independently. She dips tobacco. She denies any cigarette smoking or illicit drug abuse. She used to drink alcohol heavily, but currently does not indulge. PRE-HOSPITAL MEDICATIONS: Includes; 1. Hydrochlorothiazide 25 mg p.o. daily. 2. Pantoprazole 40 mg p.o. daily. 3. Potassium 99 mg p.o. daily. 4. Vitamin D3 1000 units p.o. daily. 5. Hydrocodone 10 mg p.o. q.6 hours p.r.n. pain. ALLERGIES: TO ASPIRIN AND MORPHINE. FAMILY HISTORY: Noncontributory for this patient's age. REVIEW OF SYSTEMS: Ten-point review of systems essentially unremarkable except as stated in past medical history and chief complaint. PHYSICAL EXAMINATION: GENERAL: This reveals a 73-year-old normally developed woman, who is otherwise coherent and interactive and appears stated age. The patient is alert and oriented x3. She appears to be in no acute distress at the time of my evaluation. VITAL SIGNS: Today include blood pressure 148/66, pulse 63, respiratory rate is 19, temperature 98.1 degrees Fahrenheit, oxygen saturation is 100% on room air. HEENT: Reveals normocephalic and atraumatic. Pupils are equal, round, reactive to light and accommodation. She has no sclerae icterus present. There is no jugular venous distention noted. HEART: Reveals regular rate and rhythm. No murmurs or gallops auscultated. LUNGS: Clear to auscultation bilaterally. Her breathing, regular, nonlabored. ABDOMEN: Soft and obese. She has right upper quadrant tenderness to palpation with a positive Mayers's sign. Liver and spleen otherwise nonpalpable below costal margin. She has a healed midline and multiple laparoscopy scars. There is a colostomy in place, which is viable and functional. EXTREMITIES: Reveals 2+ radial and pedal pulses bilaterally. No ankle edema is present. NEUROLOGIC: Reveals no focal deficits present. LABORATORY FINDINGS: Today include a CBC with 8200 white blood cells, hemoglobin and hematocrit are 12.2 and 37.0 respectively. Platelet count is 311,000. Metabolic profile; sodium 133, potassium 3.9, chloride is 100, bicarb 24, BUN 20, creatinine is 1.24, glucose 124. Total bilirubin is 0.9, AST is marginally elevated at 66, ALT is normal at 36, alkaline phosphatase is also normal at 71. Serum lipase is normal at 68. I have personally reviewed the abdominal ultrasound, which is remarkable for dilated gallbladder with gallbladder wall thickening at 6 mm. There is pericholecystic fluid present. Also noted multiple intraluminal gallstones. Common bile duct size is normal for this patient's age at 7 mm in diameter. IMPRESSIONS: Acute cholecystitis with cholelithiasis. RECOMMENDATION: Laparoscopic cholecystectomy. Above findings and recommendations been discussed with the patient and her adult son at bedside. I have informed the patient of the risks and benefits of proposed surgery to include, but not limited to bleeding, infection, injury to bowel, bile duct or surrounding structures. Additionally, given the patient's history of multiple previous operations, if laparoscopic procedure is not feasible due to extensive adhesions, we may have to convert this to open. The patient indicates understanding information provided. I answered her questions. The patient is going to consent for this admission and surgical intervention. Job ID: [id number]
[2018-09-02] MEDS ORDERED: Lidocaine 1% PF 5 ML VIAL ONE (14:45)
[2018-09-02] MEDS ORDERED: Ondansetron PF 4 MG/2 ML Vial ONE (14:45)
[2018-09-02] MEDS ORDERED: PROPOFOL 200 MG/20 ML VIAL ONE (14:45)
[2018-09-02] MEDS ORDERED: Ketorolac Tromethamine 30 MG/ML VIAL ONE (14:45)
[2018-09-02] MEDS ORDERED: Rocuronium Bromide 10 MG/ML (10ML VIAL) ONE (14:45)
[2018-09-02] MEDS ORDERED: Dexamethasone 20 MG/5 ML VIAL ONE (14:45)
[2018-09-02] MEDS ORDERED: Glycopyrrolate 0.2 MG/ML 5 ML SYRINGE ONE (14:45)
--- NOTE | 2018-09-02 19:06 | OP ---
DATE OF PROCEDURE: 09/02/2018 PREOPERATIVE DIAGNOSIS: Acute cholecystitis with cholelithiasis. POSTOPERATIVE DIAGNOSIS: Acute cholecystitis with cholelithiasis. OPERATION PERFORMED: Laparoscopic cholecystectomy. ANESTHESIA: General endotracheal. ESTIMATED BLOOD LOSS: 10 mL. FLUIDS GIVEN: 500 mL crystalloids. COUNTS: Sponge and instrument counts were verified as correct x2. COMPLICATIONS: None apparent at the time of operation. INDICATIONS FOR OPERATION: A 73-year-old woman presented with postprandial epigastric abdominal pain, which started yesterday after dinner. Clinical radiographic examination was consistent with acute cholecystitis with cholelithiasis for which the patient was brought to the operating room for cholecystectomy. Findings are consistent with a markedly dilated gallbladder with pericholecystic fluid and gallbladder completely encased by omental adhesions. DESCRIPTION OF PROCEDURE: Informed consent was obtained from the patient. The patient was brought to the operating room and placed in supine position. Following general anesthesia, abdomen was sterilely prepped and draped in usual fashion. The skin below the umbilicus was infiltrated with 0.25% Marcaine with epinephrine. A 1-cm infraumbilical vertical incision was made using a #11 scalpel. Umbilical stalk was grasped with Wyatt and elevated. Veress needle was inserted through the incision and placed in the peritoneal cavity through which the abdomen was insufflated with 3 L of CO2 gas. Intraabdominal pressure noted at 1 mmHg. Following abdominal insufflation, Veress needle was removed, and a 5-mm trocar introduced using a Visiport under laparoscopy. Laparoscopy confirmed proper placement of the port with no injuries to underlying structures. Additional laparoscopy reveals gallbladder in the usual anatomic location completely encased by omental adhesions. Under direct laparoscopy, a 12-mm epigastric and two 5-mm right lateral subcostal ports were placed after the overlying skin were infiltrated with 0.25% Marcaine with epinephrine and appropriate incision was made. The patient was placed in a reverse Trendelenburg position, rotated to her left. I introduced a [place] dissector with cautery using this to take down omental adhesions off the gallbladder. Prestige grasper introduced through the right lateral subcostal port, grasping the fundus of the gallbladder, which was elevated cephalad. Omental adhesions were then taken down from the remainder of the gallbladder. Second Prestige grasper was introduced through the right medial subcostal port, grasping the [place] pouch which was retracted laterally. An anterior coursing cystic artery was dissected free from surrounding structures and divided between clips. I applied two clips proximally and one clip at the junction of the cystic artery and gallbladder. The cystic duct itself was dissected free from surrounding structures and divided between clips in a similar fashion. Gallbladder was removed from the liver bed using cautery with good hemostasis. Gallbladder was delivered off the abdominal cavity using the EndoCatch. Operative site was inspected for good hemostasis. Finding no other pathology, laparoscopy was terminated. Fascia of the epigastric port closed using 0 Vicryl suture and Endoclosure device on the laparoscopy. The abdomen was desufflated. All sponges and instruments removed and accounted. Skin incisions were closed using 4-0 Monocryl suture in subcuticular fashion. Dermabond was applied over incisional closure. A new colostomy appliance was then reapplied. The patient tolerated the operation without any apparent complication. She was returned to the recovery room in satisfactory condition. Job ID: [id number]
--- NOTE | 2018-09-02 21:26 | EKG ---
Test Reason : PREOP Blood Pressure : / mmHG Vent. Rate : 053 BPM Atrial Rate : 053 BPM P-R Int : 166 ms QRS Dur : 072 ms QT Int : 462 ms P-R-T Axes : 052 -19 107 degrees QTc Int : 433 ms Sinus bradycardia T wave abnormality, consider lateral ischemia Abnormal ECG When compared with ECG of 17-FEB-2018 11:13, T wave inversion now evident in Anterior leads Confirmed by MELISSA HAMILTON, SMarli (4) on 09/02/2018 9:25:59 PM Referred By: AARON Confirmed By:DR. Mike TORRES MD
== END 2018-09-02 11:04 | disposition admitted as inpatient to this hospital (09) ==
LOC: ERS 04:23
DX: K81.0 Acute cholecystitis (principal); I10 Essential (primary) hypertension; K21.9 Gastro-esophageal reflux disease without esophagitis; F17.220 Nicotine dependence, chewing tobacco, uncomplicated; Z79.899 Other long term (current) drug therapy
CPT/HCPCS: 36415; 74177; 76705; 80053; 83690; 85025; 88304; 93005; 93010; 96361; 96365; 96375; J1100; J1885; J2001; J2405; J2543; J2704; J3010; Q9966

== ENCOUNTER 2018-11-24 06:55 | Day surgery (SDC) | payer MEDICARE, MEDICAID ==
[2018-11-07 10:11] VITALS: BMI 34.5
[2018-11-24 07:57] LABS: Hemoglobin 11.5 g/dL (12.0-16.0); Mean Corpuscular HGB CONC 32.9 g/dL (32.0-36.0); Mean Corpuscular Hemoglobin 28.3 pg (27.0-31.0); Mean Corpuscular Volume 85.9 fL (78.0-98.0); Mean Platelet Volume 8.1 fL (7.4-10.4); Platelet Count 303 thou/uL (130-400); RBC Distribution Width 12.1 % (11.5-14.5); Red Blood Cell (RBC) Count 4.06 mill/uL (4.20-5.40); White Blood Cell (WBC) Count 6.8 thou/uL (4.8-10.8)
[2018-11-24 08:10] LABS: Anion Gap 15 mmol/L (10-20); BUN (Urea Nitrogen) 18 mg/dL (9.8-20.1); Calc. Creatinine Clearance 60 mL/min (70-130); Calcium 9.7 mg/dL (7.8-10.44); Carbon Dioxide 25 mmol/L (23-31); Chloride 103 mmol/L (98-107); Estimated GFR-MDRD 56; Glucose 104 mg/dL (83-110); Potassium 3.8 mmol/L (3.5-5.1); Sodium 139 mmol/L (136-145)
[2018-11-24] MEDS ORDERED: Iothalamate Meglumine 60% 50 ML VIAL FS ONE (08:37)
[2018-11-24] MEDS ORDERED: Fentanyl 100 MCG/2 ML VIAL ONE (08:46)
--- NOTE | 2018-11-24 09:36 | RAD ---
Exam: Retrograde pyelogram: HISTORY: Cystoscopy with left stent exchange COMPARISON: 1. 20/01/2019 FINDINGS: Multiple portable fluoroscopic spot images demonstrate left ureteral stent exchange with left uretera l stent placement. IMPRESSION: Documentation of left ureteral stent exchange.
--- NOTE | 2018-11-24 10:54 | OP ---
DATE OF PROCEDURE: 11/24/2018 PREOPERATIVE DIAGNOSIS: Left ureteral stent for left hydronephrosis for left ureteral injury. POSTOPERATIVE DIAGNOSIS: Left ureteral stent for left hydronephrosis for left ureteral injury. PROCEDURES PERFORMED: Cystoscopy, removal of left stent, left retrograde, and replacement of left stent. SPECIMENS REMOVED: Old stent. BLOOD LOSS: Minimal. FINDINGS: She currently does not have a dilated upper collecting system. DRAINS PLACED: A 4.8 x 24 cm double-J stent without any string attached to it. DESCRIPTION OF PROCEDURE: After obtaining written and verbal consent from the patient after receiving some IV Ancef, she was taken to operating suite. She was placed in the supine position on the treatment table. PlexiPulses were placed on lower extremities and turned on. She was given general anesthetic and oral obturator intubation, placed in the dorsal lithotomy position, sterilely prepped and draped. Cystoscopy was performed with a 22-[place] sheath. This was well lubricated, passed under direct vision through the female urethra into the urinary bladder with the aid of 30-degree lens of video camera and monitor. The bladder was filled and emptied a number of times and examined with 30 and a 70-degree lens. No other abnormality was noted. The distal end of the double-J stent was grasped with a pair of flexible grasping forceps and brought out through the urethral meatus. A 0.038 guidewire was fed up through this and the stent was removed over the guidewire and tack. We then passed a [place] catheter over the guidewire and up into the renal pelvis and upper ureter region. We removed the guidewire, and injected about 10 mL of contrast. There was no extravasation. We placed the guidewire back through the open-ended catheter, removed the open-ended catheter and then passed a 4.8 x 24 cm double-J stent over the guidewire, pushing up into place with the pusher, so its proximal end coiled in the renal pelvis and its distal end coiled in the bladder when the wire was removed. The bladder was drained. The instruments were removed. The patient was taken out of the dorsal lithotomy position, awakened, extubated, and taken by stretcher to recovery room. Job ID: [id number]
[2018-11-24] MEDS ORDERED: Ondansetron PF 4 MG/2 ML Vial ONE (11:19)
[2018-11-24] MEDS ORDERED: Dexamethasone 20 MG/5 ML VIAL ONE (11:19)
[2018-11-24] MEDS ORDERED: PROPOFOL 200 MG/20 ML VIAL ONE (11:19)
[2018-11-24] MEDS ORDERED: Lidocaine 1% PF 5 ML VIAL ONE (11:19)
== END 2018-11-24 11:17 | disposition home or self-care (01) ==
LOC: SDC 06:55
PROVIDERS: ATTEND Urology
PROC: 0T9780Z Drainage of Left Ureter with Drainage Device, Via Natural or Artificial Opening Endoscopic (ICD-10-PCS; principal; 2018-11-24)
DX: N13.30 Unspecified hydronephrosis (principal)
CPT/HCPCS: 74420; 80048; 85027; C1758; J0690; J3010

== ENCOUNTER 2019-05-11 05:53 | Day surgery (SDC) | payer MEDICARE, MEDICAID ==
[2019-05-08 14:50] VITALS: BMI 32.8
[2019-05-11 06:45] LABS: #Eosinphils 0.2 thou/uL (0.0-0.7); #Lymphocytes 1.7 thou/uL (1.20-3.40); #Monocytes 0.6 thou/uL (0.11-0.59); #Neutrophils 2.9 thou/uL (1.40-6.50); %Basophils 0.3 % (0.0-1.0); %Eosinophils 3.5 % (0.0-10.0); %Lymphocytes 32.1 % (21.0-51.0); %Neutrophils 54.1 % (42.0-75.0); Hemoglobin 11.7 g/dL (12.0-16.0); Mean Corpuscular HGB CONC 33.4 g/dL (32.0-36.0); Mean Corpuscular Hemoglobin 28.7 pg (27.0-31.0); Mean Corpuscular Volume 85.8 fL (78.0-98.0); Mean Platelet Volume 7.9 fL (7.4-10.4); Platelet Count 289 thou/uL (130-400); RBC Distribution Width 11.6 % (11.5-14.5); Red Blood Cell (RBC) Count 4.08 mill/uL (4.20-5.40); White Blood Cell (WBC) Count 5.4 thou/uL (4.8-10.8)
[2019-05-11] MEDS ORDERED: Iothalamate Meglumine 60% 50 ML VIAL FS ONE (06:45)
[2019-05-11 06:51] LABS: INR-International Normal Ratio 1.1
[2019-05-11 06:52] LABS: PTT 30.7 SEC (22.9-36.1)
[2019-05-11 07:01] LABS: Anion Gap 14 mmol/L (10-20); BUN (Urea Nitrogen) 20 mg/dL (9.8-20.1); Calc. Creatinine Clearance 52 mL/min (70-130); Calcium 9.4 mg/dL (7.8-10.44); Carbon Dioxide 23 mmol/L (23-31); Chloride 104 mmol/L (98-107); Estimated GFR-MDRD 51; Glucose 102 mg/dL (83-110); Sodium 137 mmol/L (136-145)
[2019-05-11] MEDS ORDERED: Fentanyl 100 MCG/2 ML VIAL ONE (07:10)
--- NOTE | 2019-05-11 08:46 | RAD ---
IVP RETROGRADE EVALUATION: INDICATION: History of ureteral stent. COMPARISON: Prior exam dated November 24, 2018. FINDINGS: Submitted images demonstrate a distally migrated left ureteral stent on the initial image. Subsequent images demonstrate wire placement within the left renal collecting system and placement of a left ureteral catheter and retrograde opacification of the left proximal ureter and left renal pelvis. No focal filling defect is evident. Final submitted image demonstrates placement of a wire and stent within the left renal collecting system. IMPRESSION: Intraprocedural C-arm images are images from a retrograde left-sided IVP as above. Transcribed Date/Time: 05/11/2019 9:13 AM
[2019-05-11] MEDS ORDERED: HYDROcodone/Acetaminophen 5/325 mg Tablet ONE (09:22)
--- NOTE | 2019-05-11 09:32 | OP ---
DATE OF PROCEDURE: 05/11/2019 PREOPERATIVE DIAGNOSES: 1. Left ureteral obstruction. 2. Left ureteral stent. POSTOPERATIVE DIAGNOSES: 1. Left ureteral obstruction. 2. Left ureteral stent. PROCEDURES PERFORMED: 1. Cystoscopy. 2. Removal of left stent. 3. Left retrograde. 4. Left stent replacement. ANESTHETIC: General. ESTIMATED BLOOD LOSS: Minimal. FINDINGS: The old stent was intact and patent. Retrograde study revealed no hydro. She still has some narrowing at the site of the stricture distal across the pelvic inlet. The bladder was free of tumor, foreign body, or stone. A stent replaced was 4.8 x 26 cm without a string attached. DESCRIPTION OF PROCEDURE: We obtained written and verbal consent from the patient after receiving IV antibiotics. She was taken to the operating suite. She was placed in the supine position on the treatment table. PlexiPulses were placed on her lower extremities and turned on. She was given a general anesthetic and on oral obturator intubation. She was placed in the dorsal lithotomy position, sterilely prepped and draped. C-arm was brought in and fluoroscopy was used to help with the case. Substance Abuse Specialist film was taken. Cystoscopy was performed with a 22-[place] sheath. This was well lubricated and passed under direct vision through the female urethra into the bladder with aid of a 30-degree lens and video camera and monitor. The bladder was examined with 30 and 70-degree lens. It was filled and emptied number of times. The distal end of double-J stent was grasped with a pair of flexible grasping forceps and brought out through the urethral meatus. A guidewire was fed up through this up in the region of the renal pelvis and the stent was removed over the guidewire and discarded. A 5-[place] Pollack catheter was fed over this guidewire and up into the region of renal pelvis. We injected about 12 to 15 mL of contrast, filling out the entire collecting system and ureter. We then replaced the wire, removed the open-ended catheter, and placed a new 4.8 x 26 cm double-J stent, pushing up into place with aid of a pusher, so that its proximal end coiled in the renal pelvis and its distal end coiled in the bladder when the wire was removed. The bladder was drained. The instruments were removed. She was taken out of the dorsal lithotomy position. She was awakened, extubated, and taken by stretcher to recovery room. Job ID: [id number]
[2019-05-11] MEDS ORDERED: PROPOFOL 200 MG/20 ML VIAL ONE (10:47)
[2019-05-11] MEDS ORDERED: Lidocaine 1% PF 5 ML VIAL ONE (10:47)
== END 2019-05-11 09:35 | disposition home or self-care (01) ==
LOC: SDC 05:53
PROVIDERS: ATTEND Urology
PROC: 0T778DZ Dilation of Left Ureter with Intraluminal Device, Via Natural or Artificial Opening Endoscopic (ICD-10-PCS; principal; 2019-05-11)
DX: N13.5 Crossing vessel and stricture of ureter without hydronephrosis (principal); E78.5 Hyperlipidemia, unspecified; K21.9 Gastro-esophageal reflux disease without esophagitis; I10 Essential (primary) hypertension; Z79.899 Other long term (current) drug therapy; Z88.5 Allergy status to narcotic agent; Z88.8 Allergy status to other drugs, medicaments and biological substances; Z90.49 Acquired absence of other specified parts of digestive tract
CPT/HCPCS: 36415; 74420; 80048; 85025; 85610; 85730; C1758; J0690; J2001; J2704; J3010

== ENCOUNTER 2019-12-10 05:20 | Outpatient (CLI) | payer MEDICARE, MEDICAID, OTHER ==
[2019-12-10 13:54] LABS: Hemoglobin 12.4 g/dL (12.0-16.0); Mean Corpuscular Hemoglobin 28.9 pg (27.0-31.0); Mean Corpuscular Volume 87.8 fL (78.0-98.0); Mean Platelet Volume 8.3 fL (7.4-10.4); Platelet Count 304 thou/uL (130-400); RBC Distribution Width 11.7 % (11.5-14.5); Red Blood Cell (RBC) Count 4.29 mill/uL (4.20-5.40); White Blood Cell (WBC) Count 6.4 thou/uL (4.8-10.8)
[2019-12-10 14:03] LABS: PTT 26.6 sec (22.9-36.1); Prothrombin Time 13.4 sec (12.0-14.7)
[2019-12-10 14:15] LABS: Anion Gap 13 mmol/L (10-20); BUN (Urea Nitrogen) 16 mg/dL (9.8-20.1); Calc. Creatinine Clearance 0 mL/min (70-130); Calcium 9.2 mg/dL (7.8-10.44); Carbon Dioxide 25 mmol/L (23-31); Chloride 100 mmol/L (98-107); Estimated GFR-MDRD 43; Glucose 116 mg/dL (83-110); Potassium 3.6 mmol/L (3.5-5.1); Sodium 134 mmol/L (136-145)
--- NOTE | 2019-12-11 09:13 | EKG ---
Test Reason : Blood Pressure : / mmHG Vent. Rate : 066 BPM Atrial Rate : 066 BPM P-R Int : 154 ms QRS Dur : 084 ms QT Int : 414 ms P-R-T Axes : 073 -18 075 degrees QTc Int : 434 ms Normal sinus rhythm Normal ECG When compared with ECG of 02-SEP-2018 12:09, T wave inversion no longer evident in Anterolateral leads Confirmed by MELISSA HAMILTON, SMarli (4) on 12/11/2019 9:13:03 AM Referred By: LETICIA Confirmed By:DR. Mike TORRES MD
[2019-12-11 12:52] LABS: SARS-CoV-2 MS2 Positive; SARS-CoV-2 N Gene Negative; SARS-CoV-2 S Gene Negative; SARS-CoV-2 orf1ab Negative
== END 2019-12-10 05:21 | disposition home or self-care (01) ==
LOC: LABBT 05:20
PROVIDERS: ATTEND Urology
DX: Z01.818 Encounter for other preprocedural examination (principal); Z11.59 Encounter for screening for other viral diseases; N13.5 Crossing vessel and stricture of ureter without hydronephrosis
CPT/HCPCS: 80048; 85027; 85610; 85730; 93005; U0003; 87635; 93010

== ENCOUNTER 2019-12-14 06:43 | Day surgery (SDC) | payer MEDICARE, MEDICAID ==
[2019-12-08 13:55] VITALS: BMI 34.7
[2019-12-14] MEDS ORDERED: Fentanyl 100 MCG/2 ML VIAL ONE (08:17)
[2019-12-14] MEDS ORDERED: Iothalamate Meglumine 60% 50 ML VIAL FS ONE (08:22)
[2019-12-14] MEDS ORDERED: HYDROcodone/Acetaminophen 5/325 mg Tablet ONE (09:35)
--- NOTE | 2019-12-14 09:35 | OP ---
DATE OF PROCEDURE: 12/14/2019 PREOPERATIVE DIAGNOSIS: Left ureteral obstruction, managed with left stent. POSTOPERATIVE DIAGNOSIS: Left ureteral obstruction, managed with left stent. PROCEDURES PERFORMED: Cysto, removal of left stent, left retrograde, left stent replacement. ANESTHESIA: General. ESTIMATED BLOOD LOSS: Minimal. FINDINGS: The bladder had no evidence of tumor, foreign body, or stone. The left stent was still patent without calcification. New stent placed was a 4.8 x 26 cm double-J stent. DESCRIPTION OF PROCEDURE: After obtaining written and verbal consent and after receiving IV antibiotics, the patient was taken to the operating suite. She was placed in the supine position on the treatment table. PlexiPulses were placed on her lower extremities and turned on. She was given a general anesthetic and oral obturator intubation. She was placed in dorsal lithotomy position and sterilely prepped and draped. Fluoroscopy unit was placed over her and the stent was easily visualized. Cystoscopy was performed with a 22-Colombian sheath. This was well lubricated, passed under direct vision through the female urethra into the urinary bladder with aid of a 30-degree lens and video camera and monitor. The bladder was filled and emptied number of times, and the distal end of the double-J stent was grasped with a flexible grasping forceps and brought out through the urethral meatus. A guidewire was fed up it and the stent was removed over the wire and discarded. A 5-Colombian Pollack catheter was placed over the guidewire and about 10 mL of contrast were injected showing a mildly dilated left proximal collecting system and ureter. No extravasation. The wire was replaced and a 4.8 double-J stent was passed over the guidewire and pushed up in place with the pusher, so its proximal end coiled in the renal pelvis. When the wire was removed, its distal end coiled in the bladder. The bladder was drained. The instruments were removed. The patient was taken out of the dorsal lithotomy position, awakened, extubated, and taken by stretcher to recovery room. Job ID: [id number]
--- NOTE | 2019-12-14 11:30 | RAD ---
Retrograde pyelogram 6 views: 12/14/2019 HISTORY: 74-year-old female with chronic left obstructive uropathy COMPARISON: 05/11/2019 retrograde pyelogram FINDINGS: Flame Gouger view time stamped at 10:57 AM demonstrates left ureteral stent. Subsequent images demonstrate guidewire advancement into left renal upper pole, then injection into d istal left ureter, again demonstrating the moderate dilation of left renal pelvis and calyces. Final image time stamped at 11:05 AM demonstrates residual wire at left renal collecting system and r esidual contrast in the dilated left renal collecting system. IMPRESSION: Persistent left hydronephrosis.
[2019-12-14] MEDS ORDERED: Lidocaine 1% PF 5 ML VIAL ONE (12:11)
[2019-12-14] MEDS ORDERED: Glycopyrrolate 0.2 MG/ML 5 ML SYRINGE ONE (12:11)
[2019-12-14] MEDS ORDERED: PROPOFOL 200 MG/20 ML VIAL ONE (12:11)
[2019-12-14] MEDS ORDERED: Ondansetron PF 4 MG/2 ML Vial ONE (12:11)
[2019-12-14] MEDS ORDERED: EPHEDRINE 25 MG/5 ML SYRINGE ONE (12:11)
== END 2019-12-14 10:25 | disposition home or self-care (01) ==
LOC: SDC 06:43
PROVIDERS: ATTEND Urology
PROC: 0T778DZ Dilation of Left Ureter with Intraluminal Device, Via Natural or Artificial Opening Endoscopic (ICD-10-PCS; principal; 2019-12-14)
PROC: 0TP98DZ Removal of Intraluminal Device from Ureter, Via Natural or Artificial Opening Endoscopic (ICD-10-PCS; 2019-12-14)
DX: N13.1 Hydronephrosis with ureteral stricture, not elsewhere classified (principal); I10 Essential (primary) hypertension; E78.5 Hyperlipidemia, unspecified; K21.9 Gastro-esophageal reflux disease without esophagitis; F17.220 Nicotine dependence, chewing tobacco, uncomplicated; J18.9 Pneumonia, unspecified organism; Z79.2 Long term (current) use of antibiotics; Z79.899 Other long term (current) drug therapy; Z88.5 Allergy status to narcotic agent; Z88.6 Allergy status to analgesic agent
CPT/HCPCS: 74420; J0690; J3010

== ENCOUNTER 2020-07-11 05:42 | Day surgery (SDC) | payer MEDICARE, MEDICAID ==
[2020-07-07 13:12] VITALS: BMI 33.5
[2020-07-11] MEDS ORDERED: Iothalamate Meglumine 60% 50 ML VIAL FS ONE (06:35)
[2020-07-11] MEDS ORDERED: Fentanyl 100 MCG/2 ML VIAL ONE (06:41)
[2020-07-11] MEDS ORDERED: Famotidine/PF 20 mg/2ml Vial ONE (06:41)
--- NOTE | 2020-07-11 09:16 | OP ---
DATE OF PROCEDURE: 07/11/2020 PREOPERATIVE DIAGNOSES: Left ureteral obstruction, left ureteral stent. POSTOPERATIVE DIAGNOSES: Left ureteral obstruction, left ureteral stent. PROCEDURES PERFORMED: Cystoscopy, removal of left stent, left retrograde and . ANESTHESIA: General. ESTIMATED BLOOD LOSS: Minimal. FINDINGS: She had no bladder tumor, foreign body, or stone. The left stent was not calcified. She still has some left hydronephrosis. DESCRIPTION OF PROCEDURE: After obtaining written and verbal consent from the patient, she was taken to the operating suite. She was placed in supine position on the treatment table. PlexiPulses were placed on lower extremities and turned on. She was given a general anesthetic and oral obturator intubation. She was placed in the dorsal lithotomy position, sterilely prepped and draped. Cystoscopy was performed with a 22-Greek sheath. This was passed, well lubricated under direct vision through the male urethra into the urinary bladder with aid of a 30-degree lens and video camera and monitor. The bladder was filled and emptied number of times and examined with 30-degree and 70-degree lens. The left distal ureteral stent was grasped and brought out through the urethral meatus. C-arm was used guidewire was fed up through the stent up into the region of renal pelvis and the stent was removed over the guidewire. A Pollack catheter was placed over the guidewire and then the guidewire was removed and we injected contrast on the entire collecting system. Wire was then replaced and a new 4.8 x 26 cm double-J stent was placed on the left side. It was pushed up into place with aid of a pusher, so its proximal end coiled in the renal pelvis, distal end coiled in the bladder when the wire was removed. The bladder was drained. The instruments were removed. She was taken out of dorsal lithotomy position, awakened, extubated, taken by stretcher to recovery room. Job ID: [id number]
[2020-07-11] MEDS ORDERED: HYDROcodone/Acetaminophen 5/325 mg Tablet ONE (09:24)
--- NOTE | 2020-07-11 09:45 | RAD ---
RETROGRADE PYELOGRAM: Four fluoroscopic images are presented from a retrograde procedure. INDICATION: Intraoperative imaging during retrograde pyelogram and left stent placement. FINDINGS/IMPRESSION: Thee images show opacification of the left collecting structures. Final image shows placement of a le ft ureteral stent. POS: [facility]W
[2020-07-11] MEDS ORDERED: Ondansetron PF 4 MG/2 ML Vial ONE (11:05)
[2020-07-11] MEDS ORDERED: PHENYLEPHRINE-NS 100 MCG/ML 10 ML SYRINGE ONE (11:05)
[2020-07-11] MEDS ORDERED: Lidocaine 1% PF 5 ML VIAL ONE (11:05)
[2020-07-11] MEDS ORDERED: PROPOFOL 200 MG/20 ML VIAL ONE (11:05)
[2020-07-11] MEDS ORDERED: Metoclopramide HCl 10 MG/2 ML VIAL ONE (11:05)
== END 2020-07-11 09:46 | disposition home or self-care (01) ==
LOC: SDC 05:42
PROVIDERS: ATTEND Urology
PROC: 0T778DZ Dilation of Left Ureter with Intraluminal Device, Via Natural or Artificial Opening Endoscopic (ICD-10-PCS; principal; 2020-07-11)
DX: N13.1 Hydronephrosis with ureteral stricture, not elsewhere classified (principal); I10 Essential (primary) hypertension; Z79.899 Other long term (current) drug therapy; Z88.5 Allergy status to narcotic agent; Z88.6 Allergy status to analgesic agent
CPT/HCPCS: 74420; J0690; J2405; J2704; J2765; J3010; S0028

== ENCOUNTER 2020-08-11 09:57 | Outpatient (CLI) | payer MEDICARE, MEDICAID | END 2020-08-11 09:58 | disposition home or self-care (01) | LOC: TBSIIMAG 09:57 | PROVIDERS: ATTEND Internal Medicine | DX: R93.2 Abnormal findings on diagnostic imaging of liver and biliary tract (principal); K86.89 Other specified diseases of pancreas; K83.9 Disease of biliary tract, unspecified | CPT/HCPCS: 74183 ==

== ENCOUNTER 2020-08-18 13:36 | Outpatient (CLI) | payer MEDICARE, MEDICAID ==
[2020-07-06 11:39] LABS: Anion Gap 16 mmol/L (10-20); BUN (Urea Nitrogen) 19 mg/dL (9.8-20.1); Calc. Creatinine Clearance 0 mL/min (70-130); Calcium 9.2 mg/dL (7.8-10.44); Carbon Dioxide 25 mmol/L (23-31); Chloride 100 mmol/L (98-107); Glucose 86 mg/dL (83-110); Potassium 3.7 mmol/L (3.5-5.1); Sodium 137 mmol/L (136-145)
[2020-07-06 11:52] LABS: Hemoglobin 11.8 g/dL (12.0-16.0); Mean Corpuscular HGB CONC 31.6 G/DL (32.0-36.0); Mean Corpuscular Hemoglobin 27.6 PG (27.0-33.0); Mean Corpuscular Volume 87.1 fl (80.0-100.0); Mean Platelet Volume 10.5 fl (7.4-10.4); Platelet Count 314 10x3/uL (130-400); RBC Distribution Width 13.3 % (11.5-14.5); Red Blood Cell (RBC) Count 4.28 10x6/uL (3.90-5.20); White Blood Cell (WBC) Count 7.2 10x3/uL (4.5-11.0)
[2020-07-06 12:24] LABS: PTT 27.6 sec (22.0-33.0)
[2020-07-07 02:43] LABS: SARS-CoV-2 PCR by NAA Not Detected (NotDetected)
[2020-08-19 01:27] LABS: SARS-CoV-2 PCR by NAA Not Detected (NotDetected)
== END 2020-08-18 13:37 | disposition home or self-care (01) ==
LOC: LABBT 13:36
PROVIDERS: ATTEND Urology
DX: Z01.812 Encounter for preprocedural laboratory examination (principal); Z20.822 Contact with and (suspected) exposure to COVID-19
CPT/HCPCS: 80048; 85027; 85610; 85730; 87086; U0003 ×2; U0005 ×2; 87635

== ENCOUNTER 2020-08-22 06:13 | Day surgery (SDC) | payer MEDICARE, MEDICAID ==
[2020-08-18 10:53] VITALS: BMI 34.5
[2020-08-22] MEDS ORDERED: Iothalamate Meglumine 60% 50 ML VIAL FS ONE (07:27)
[2020-08-22] MEDS ORDERED: Indomethacin 50 MG SUPP ONE (07:27)
[2020-08-22] MEDS ORDERED: Fentanyl 100 MCG/2 ML VIAL ONE (07:28)
[2020-08-22] MEDS ORDERED: Famotidine/PF 20 mg/2ml Vial ONE (07:32)
[2020-08-22] MEDS ORDERED: Levofloxacin 500 mg/D5W 100 ml Premix Bag ONE (08:28)
[2020-08-22] MEDS ORDERED: Ondansetron PF 4 MG/2 ML Vial ONE (08:34)
[2020-08-22] MEDS ORDERED: Glycopyrrolate 0.2 MG/ML 5 ML SYRINGE ONE (08:34)
[2020-08-22] MEDS ORDERED: Dexamethasone 20 MG/5 ML VIAL ONE (08:34)
[2020-08-22] MEDS ORDERED: Ketorolac Tromethamine 30 MG/ML VIAL ONE (08:34)
[2020-08-22] MEDS ORDERED: Rocuronium Bromide 10 MG/ML (10ML VIAL) ONE (08:34)
[2020-08-22] MEDS ORDERED: PROPOFOL 200 MG/20 ML VIAL ONE (08:34)
[2020-08-22] MEDS ORDERED: diphenhydrAMINE 50 MG/ML VIAL ONE (08:34)
== END 2020-08-22 11:20 | disposition home or self-care (01) ==
LOC: SDC 06:13
PROVIDERS: ATTEND Internal Medicine Gastroenterology
PROC: 0F798ZZ Dilation of Common Bile Duct, Via Natural or Artificial Opening Endoscopic (ICD-10-PCS; principal; 2020-08-22)
PROC: 0FC98ZZ Extirpation of Matter from Common Bile Duct, Via Natural or Artificial Opening Endoscopic (ICD-10-PCS; 2020-08-22)
DX: K80.51 Calculus of bile duct without cholangitis or cholecystitis with obstruction (principal); K21.9 Gastro-esophageal reflux disease without esophagitis; I10 Essential (primary) hypertension; E78.00 Pure hypercholesterolemia, unspecified; F17.220 Nicotine dependence, chewing tobacco, uncomplicated; E78.5 Hyperlipidemia, unspecified; Z79.899 Other long term (current) drug therapy; Z88.5 Allergy status to narcotic agent; Z88.6 Allergy status to analgesic agent; Z88.8 Allergy status to other drugs, medicaments and biological substances; Z90.49 Acquired absence of other specified parts of digestive tract
CPT/HCPCS: 43262; 43264; 74330; J1610; J1100; J1200; J1885; J1956; J2405; J2704; J3010; Q9961; S0028

== ENCOUNTER 2021-01-20 08:25 | Outpatient (CLI) | payer MEDICARE, OTHER ==
[2021-01-20 09:29] LABS: PTT 23.9 sec (22.0-33.0); Prothrombin Time 11.2 sec (9.5-12.1)
[2021-01-20 09:35] LABS: Anion Gap 15 mmol/L (10-20); BUN (Urea Nitrogen) 19 mg/dL (9.8-20.1); Calc. Creatinine Clearance 0 mL/min (70-130); Calcium 9.9 mg/dL (7.8-10.44); Carbon Dioxide 24 mmol/L (23-31); Chloride 101 mmol/L (98-107); Glucose 88 mg/dL (83-110); Potassium 3.8 mmol/L (3.5-5.1); Sodium 136 mmol/L (136-145)
[2021-01-20 09:52] LABS: Bilirubin Neg (Negative); Blood, Urine 10 (Negative); Clarity Slightly Cloudy (Clear); Glucose, Urine (Dipstick) Normal (Negative); Ketone, Urine Negative (Negative); Leukocyte 500 (Negative); Nitrite Negative (Negative); Protein, Urine (Dipstick) Negative (Neg-Trace); Specific Gravity, Urine 1.015 (1.002-1.036); Urobilinogen Normal mg/dL (Less than 2)
[2021-01-20 09:57] LABS: Hemoglobin 12.3 g/dL (12.0-15.5); Mean Corpuscular Hemoglobin 27.6 pg (27.0-33.0); Mean Corpuscular Volume 86.1 fl (81.6-98.3); Mean Platelet Volume 10.5 fl (7.4-10.4); Platelet Count 304 10x3/uL (150-450); RBC Distribution Width 13.5 % (11.5-14.5); Red Blood Cell (RBC) Count 4.46 10x6/uL (3.90-5.03); White Blood Cell (WBC) Count 7.2 10x3/uL (3.5-10.5)
[2021-01-20 10:40] LABS: Bacteria/HPF 3+ HPF (None Seen); RBC/HPF 0-3 HPF (0-3); WBC/HPF 21-50 HPF (0-3); Yeast-Budding Rare HPF (None Seen)
[2021-01-20 10:41] LABS: Squamous Epithelial 0-3 HPF (0-3)
[2021-01-21 01:29] LABS: SARS-CoV-2 PCR by NAA Not Detected (NotDetected)
== END 2021-01-20 08:26 | disposition home or self-care (01) ==
LOC: LABBT 08:25
PROVIDERS: ATTEND Urology
DX: Z01.812 Encounter for preprocedural laboratory examination (principal); N13.1 Hydronephrosis with ureteral stricture, not elsewhere classified; Z20.822 Contact with and (suspected) exposure to COVID-19
CPT/HCPCS: 80048; 81001; 85027; 85610; 85730; 87086; U0003; U0005

== ENCOUNTER 2021-01-23 05:56 | Day surgery (SDC) | payer MEDICARE, MEDICAID ==
[2021-01-20 13:14] VITALS: BMI 34.0
[2021-01-23] MEDS ORDERED: Fentanyl 100 MCG/2 ML VIAL ONE (07:03)
[2021-01-23] MEDS ORDERED: Iothalamate Meglumine 60% 30 ML VIAL FS ONE (07:21)
[2021-01-23] MEDS ORDERED: Ondansetron PF 4 MG/2 ML Vial ONE (07:35)
[2021-01-23] MEDS ORDERED: PHENYLEPHRINE-NS 100 MCG/ML 10 ML SYRINGE ONE (07:35)
[2021-01-23] MEDS ORDERED: Lidocaine 1% PF 5 ML VIAL ONE (07:35)
[2021-01-23] MEDS ORDERED: Glycopyrrolate 0.2 MG/ML 5 ML SYRINGE ONE (07:35)
[2021-01-23] MEDS ORDERED: PROPOFOL 200 MG/20 ML VIAL ONE (07:35)
[2021-01-23] MEDS ORDERED: Fluconazole 100 MG TAB PO SCH (09:00)
== END 2021-01-23 09:35 | disposition home or self-care (01) ==
LOC: SDC 05:56
PROVIDERS: ATTEND Urology
PROC: 0T778DZ Dilation of Left Ureter with Intraluminal Device, Via Natural or Artificial Opening Endoscopic (ICD-10-PCS; principal; 2021-01-23)
PROC: 0TP98DZ Removal of Intraluminal Device from Ureter, Via Natural or Artificial Opening Endoscopic (ICD-10-PCS; 2021-01-23)
DX: N13.1 Hydronephrosis with ureteral stricture, not elsewhere classified (principal); E78.5 Hyperlipidemia, unspecified; K21.9 Gastro-esophageal reflux disease without esophagitis; F17.220 Nicotine dependence, chewing tobacco, uncomplicated; I10 Essential (primary) hypertension; Z79.899 Other long term (current) drug therapy; Z88.5 Allergy status to narcotic agent; Z88.6 Allergy status to analgesic agent
CPT/HCPCS: 74420; C2617; J0690; J2405; J2704; J3010

== ENCOUNTER 2021-07-25 13:13 | Outpatient (CLI) | payer MEDICARE, MEDICAID ==
[2021-07-25 14:35] LABS: Hemoglobin 11.5 g/dL (12.0-15.5); Mean Corpuscular HGB CONC 32.1 g/dL (32.0-36.0); Mean Corpuscular Hemoglobin 27.7 pg (27.0-33.0); Mean Corpuscular Volume 86.3 fl (81.6-98.3); Mean Platelet Volume 10.7 fl (7.4-10.4); Platelet Count 301 10x3/uL (150-450); RBC Distribution Width 13.5 % (11.5-14.5); Red Blood Cell (RBC) Count 4.15 10x6/uL (3.90-5.03); White Blood Cell (WBC) Count 7.9 10x3/uL (3.5-10.5)
[2021-07-25 14:45] LABS: PTT 25.4 sec (22.0-33.0); Prothrombin Time 11.3 sec (9.5-12.1)
[2021-07-25 15:01] LABS: Anion Gap 13 mmol/L (10-20); BUN (Urea Nitrogen) 21 mg/dL (9.8-20.1); Calc. Creatinine Clearance 0 mL/min (70-130); Calcium 9.1 mg/dL (7.8-10.44); Carbon Dioxide 26 mmol/L (23-31); Chloride 102 mmol/L (98-107); Glucose 91 mg/dL (83-110); Potassium 3.9 mmol/L (3.5-5.1); Sodium 137 mmol/L (136-145)
[2021-07-25 23:47] LABS: SARS-CoV-2 PCR by NAA Not Detected (NotDetected)
== END 2021-07-25 13:14 | disposition home or self-care (01) ==
LOC: LABBT 13:13
PROVIDERS: ATTEND Urology
DX: Z01.812 Encounter for preprocedural laboratory examination (principal); N13.1 Hydronephrosis with ureteral stricture, not elsewhere classified; Z20.822 Contact with and (suspected) exposure to COVID-19
CPT/HCPCS: 80048; 85027; 85610; 85730; U0003; U0005

== ENCOUNTER 2021-07-31 05:49 | Day surgery (SDC) | payer MEDICARE, MEDICAID ==
[2021-07-27 09:04] VITALS: BMI 32.8
[2021-07-31] MEDS ORDERED: Fentanyl 250 MCG/5 ML VIAL ONE ×2 (06:41→08:31)
[2021-07-31] MEDS ORDERED: Iothalamate Meglumine 60% 50 ML VIAL FS ONE (06:51)
[2021-07-31] MEDS ORDERED: ceFAZolin (BATCH) 2 GM/100 ML BAG ONE (07:32)
[2021-07-31] MEDS ORDERED: PHENYLEPHRINE-NS 100 MCG/ML 10 ML SYRINGE ONE (07:36)
[2021-07-31] MEDS ORDERED: PROPOFOL 200 MG/20 ML VIAL ONE (07:36)
[2021-07-31] MEDS ORDERED: Lidocaine 1% PF 5 ML VIAL ONE (07:36)
[2021-07-31] MEDS ORDERED: Glycopyrrolate 0.2 MG/ML 5 ML SYRINGE ONE (07:36)
[2021-07-31] MEDS ORDERED: Ondansetron PF 4 MG/2 ML Vial ONE (07:36)
[2021-07-31] MEDS ORDERED: Dexamethasone 20 MG/5 ML VIAL ONE (07:36)
[2021-07-31] MEDS ORDERED: HYDROcodone/Acetaminophen 5/325 mg Tablet ONE (09:37)
== END 2021-07-31 11:12 | disposition home or self-care (01) ==
LOC: SDC 05:49
PROVIDERS: ATTEND Urology
PROC: 0T778DZ Dilation of Left Ureter with Intraluminal Device, Via Natural or Artificial Opening Endoscopic (ICD-10-PCS; principal; 2021-07-31)
PROC: 0TP98DZ Removal of Intraluminal Device from Ureter, Via Natural or Artificial Opening Endoscopic (ICD-10-PCS; 2021-07-31)
DX: N13.5 Crossing vessel and stricture of ureter without hydronephrosis (principal); I10 Essential (primary) hypertension; K21.9 Gastro-esophageal reflux disease without esophagitis; E78.5 Hyperlipidemia, unspecified; F17.220 Nicotine dependence, chewing tobacco, uncomplicated; Z79.899 Other long term (current) drug therapy; Z88.5 Allergy status to narcotic agent; Z88.6 Allergy status to analgesic agent
CPT/HCPCS: 52332; 74420; C2617; Q9961; J0690; J1100; J2405; J2704; J3010

== ENCOUNTER 2022-03-08 10:03 | Outpatient (CLI) | payer OTHER, MEDICAID ==
[2022-03-08 11:51] LABS: Mean Corpuscular HGB CONC 32.5 g/dL (32.0-36.0); Mean Corpuscular Hemoglobin 28.2 pg (27.0-33.0); Mean Corpuscular Volume 86.8 fl (81.6-98.3); Mean Platelet Volume 10.9 fl (7.4-10.4); Platelet Count 306 10x3/uL (150-450); RBC Distribution Width 13.2 % (11.5-14.5); Red Blood Cell (RBC) Count 4.25 10x6/uL (3.90-5.03); White Blood Cell (WBC) Count 6.4 10x3/uL (3.5-10.5)
[2022-03-08 12:00] LABS: PTT 25.6 sec (22.0-33.0); Prothrombin Time 11.1 sec (9.5-12.1)
[2022-03-08 12:13] LABS: Anion Gap 18 mmol/L (10-20); BUN (Urea Nitrogen) 18 mg/dL (9.8-20.1); Calc. Creatinine Clearance 0 mL/min (70-130); Calcium 9.3 mg/dL (7.8-10.44); Carbon Dioxide 20 mmol/L (23-31); Chloride 101 mmol/L (98-107); Estimated GFR 42; Glucose 87 mg/dL (83-110); Potassium 4.1 mmol/L (3.5-5.1); Sodium 135 mmol/L (136-145)
== END 2022-03-08 10:04 | disposition home or self-care (01) ==
LOC: LABBT 10:03
PROVIDERS: ATTEND Urology
DX: Z01.818 Encounter for other preprocedural examination (principal); N13.1 Hydronephrosis with ureteral stricture, not elsewhere classified; Z20.822 Contact with and (suspected) exposure to COVID-19
CPT/HCPCS: 80048; 85027; 85610; 85730; 87086; 87811; 93005; 93010

== ENCOUNTER 2022-03-12 06:55 | Day surgery (SDC) | payer OTHER, MEDICAID ==
[2022-03-08 13:24] VITALS: BMI 32.9
[2022-03-12] MEDS ORDERED: fentaNYL Citrate/PF 100 MCG/2 ML SYRINGE ONE (08:45)
[2022-03-12] MEDS ORDERED: Iopamidol 30 ML ONE (09:47)
[2022-03-12] MEDS ORDERED: Levofloxacin 500 mg/D5W 100 ml Premix Bag ONE (09:59)
[2022-03-12] MEDS ORDERED: Lidocaine 1% PF 5 ML VIAL ONE (10:12)
[2022-03-12] MEDS ORDERED: Ondansetron PF 4 MG/2 ML Vial ONE (10:12)
[2022-03-12] MEDS ORDERED: Dexamethasone 20 MG/5 ML VIAL ONE (10:12)
[2022-03-12] MEDS ORDERED: PROPOFOL 200 MG/20 ML VIAL ONE (10:12)
[2022-03-12] MEDS ORDERED: ePHEDrine 50 MG/ML VIAL ONE (10:12)
== END 2022-03-12 12:55 | disposition home or self-care (01) ==
LOC: SDC 06:55
PROVIDERS: ATTEND Urology
PROC: 0T778DZ Dilation of Left Ureter with Intraluminal Device, Via Natural or Artificial Opening Endoscopic (ICD-10-PCS; principal; 2022-03-12)
DX: Z46.6 Encounter for fitting and adjustment of urinary device (principal); N13.1 Hydronephrosis with ureteral stricture, not elsewhere classified; I10 Essential (primary) hypertension; K21.9 Gastro-esophageal reflux disease without esophagitis; Z79.899 Other long term (current) drug therapy; Z98.890 Other specified postprocedural states
CPT/HCPCS: 52332; 74420; C2617; J1100; J1956; J2405; J2704; J3490; Q9967

== ENCOUNTER 2022-08-29 09:58 | Outpatient (CLI) | payer OTHER, MEDICAID ==
[2022-08-29 11:12] LABS: Hemoglobin 13.5 g/dL (12.0-15.5); Mean Corpuscular HGB CONC 32.3 g/dL (32.0-36.0); Mean Corpuscular Volume 86.5 fl (81.6-98.3); Mean Platelet Volume 10.2 fl (7.4-10.4); Platelet Count 329 10x3/uL (150-450); RBC Distribution Width 12.6 % (11.5-14.5); Red Blood Cell (RBC) Count 4.83 10x6/uL (3.90-5.03); White Blood Cell (WBC) Count 7.1 10x3/uL (3.5-10.5)
[2022-08-29 11:23] LABS: PTT 24.9 sec (22.0-33.0); Prothrombin Time 10.5 sec (9.5-12.1)
[2022-08-29 11:28] LABS: Anion Gap 18 mmol/L (10-20); BUN (Urea Nitrogen) 20 mg/dL (9.8-20.1); Calc. Creatinine Clearance 0 mL/min (70-130); Calcium 9.5 mg/dL (7.8-10.44); Carbon Dioxide 23 mmol/L (23-31); Chloride 100 mmol/L (98-107); Estimated GFR 45; Glucose 89 mg/dL (83-110); Potassium 3.6 mmol/L (3.5-5.1); Sodium 137 mmol/L (136-145)
== END 2022-08-29 09:59 | disposition home or self-care (01) ==
LOC: LABBT 09:58
PROVIDERS: ATTEND Urology
DX: Z01.818 Encounter for other preprocedural examination (principal); N13.5 Crossing vessel and stricture of ureter without hydronephrosis
CPT/HCPCS: 80048; 85027; 85610; 85730; 87086; 93005; 93010

== ENCOUNTER 2022-09-04 08:17 | Day surgery (SDC) | payer OTHER, MEDICAID ==
[2022-09-03 11:20] VITALS: BMI 34.0
[2022-09-04] MEDS ORDERED: Levofloxacin 500 mg/D5W 100 ml Premix Bag ONE (09:38)
[2022-09-04] MEDS ORDERED: FENTANYL 50 MCG/ML 1 ML VIAL ONE (10:32)
[2022-09-04] MEDS ORDERED: Phenylephrine 10 MG/ML VIAL ONE (10:36)
[2022-09-04] MEDS ORDERED: PROPOFOL 200 MG/20 ML VIAL ONE (10:36)
[2022-09-04] MEDS ORDERED: GLYCOPYRROLATE/PF 0.2 MG/ML VIAL ONE (10:36)
[2022-09-04] MEDS ORDERED: Dexamethasone 20 MG/5 ML VIAL ONE (10:36)
[2022-09-04] MEDS ORDERED: Lidocaine 1% PF 5 ML VIAL ONE (10:36)
[2022-09-04] MEDS ORDERED: Ondansetron PF 4 MG/2 ML Vial ONE (10:36)
[2022-09-04] MEDS ORDERED: HYDROcodone/Acetaminophen 5/325 mg Tablet ONE (12:36)
== END 2022-09-04 13:12 | disposition home or self-care (01) ==
LOC: SDC 08:17
PROVIDERS: ATTEND Urology
PROC: 0TP98DZ Removal of Intraluminal Device from Ureter, Via Natural or Artificial Opening Endoscopic (ICD-10-PCS; principal; 2022-09-04)
PROC: 0T778DZ Dilation of Left Ureter with Intraluminal Device, Via Natural or Artificial Opening Endoscopic (ICD-10-PCS; 2022-09-04)
DX: Z46.6 Encounter for fitting and adjustment of urinary device (principal); N13.5 Crossing vessel and stricture of ureter without hydronephrosis; E78.5 Hyperlipidemia, unspecified; K21.9 Gastro-esophageal reflux disease without esophagitis; F17.220 Nicotine dependence, chewing tobacco, uncomplicated; I10 Essential (primary) hypertension; Z79.899 Other long term (current) drug therapy; Z88.5 Allergy status to narcotic agent; Z88.8 Allergy status to other drugs, medicaments and biological substances
CPT/HCPCS: 52332; 74420; J3010; J1100; J1956; J2370; J2405; J2704; J3490

== ENCOUNTER 2023-03-11 06:45 | Day surgery (SDC) | payer OTHER, MEDICAID ==
[2023-03-06 10:22] VITALS: BMI 38.4
[2023-03-11] MEDS ORDERED: Lidocaine 1% MPF 2 ML VIAL ONE (08:02)
[2023-03-11] MEDS ORDERED: LevoFLOXacin 500 mg/D5W 100 ML BAG ONE ×2 (09:59→10:16)
[2023-03-11] MEDS ORDERED: Iopamidol 30 ML ONE (10:04)
[2023-03-11] MEDS ORDERED: fentaNYL PF 100 MCG/2 ML SYRINGE ONE (10:12)
[2023-03-11] MEDS ORDERED: Famotidine/PF 20 mg/2ml Vial ONE (10:12)
[2023-03-11] MEDS ORDERED: Lidocaine 1% PF 5 ML VIAL ONE (10:36)
[2023-03-11] MEDS ORDERED: PROPOFOL 200 MG/20 ML VIAL ONE (10:36)
[2023-03-11] MEDS ORDERED: Ondansetron PF 4 MG/2 ML Vial ONE (10:36)
[2023-03-11] MEDS ORDERED: HYDROcodone/Acetaminophen 5/325 mg Tablet ONE (12:17)
== END 2023-03-11 12:30 | disposition home or self-care (01) ==
LOC: SDC 06:45
PROVIDERS: ATTEND Urology
PROC: 0T778DZ Dilation of Left Ureter with Intraluminal Device, Via Natural or Artificial Opening Endoscopic (ICD-10-PCS; principal; 2023-03-11)
DX: N13.2 Hydronephrosis with renal and ureteral calculous obstruction (principal); I10 Essential (primary) hypertension; E78.00 Pure hypercholesterolemia, unspecified; Z95.5 Presence of coronary angioplasty implant and graft; Z79.82 Long term (current) use of aspirin; Z88.5 Allergy status to narcotic agent
CPT/HCPCS: 52332; 74420; C2617; J1956; J2405; J2704; Q9967; S0028

== ENCOUNTER 2024-02-21 12:02 | Outpatient (CLI) | payer OTHER, MEDICAID ==
[2024-02-21 13:56] LABS: #Basophils 0.03 10x3/uL (0.0-0.2); %Basophils 0.5 % (0.0-1.0); %Lymphocytes 31.9 % (21.0-51.0); %Monocytes 8.2 % (0.0-10.0); Hematocrit 31.4 % (36.0-47.0); Hemoglobin 10.3 g/dL (12.0-16.0); Mean Corpuscular HGB CONC 32.8 g/dL (32.0-36.0); Mean Corpuscular Hemoglobin 29.8 pg (27.0-31.0); Mean Corpuscular Volume 90.8 fL (78.0-98.0); Mean Platelet Volume 11.4 fL (7.4-10.4); Platelet Count 203 10x3/uL (130-400); RBC Distribution Width 12.6 % (11.5-14.5); Red Blood Cell (RBC) Count 3.46 mill/uL (4.20-5.40)
[2024-02-21 14:00] LABS: Anion Gap 14 mmol/L (10-20); BUN (Urea Nitrogen) 7 mg/dL (9.8-20.1); Calc. Creatinine Clearance 0 mL/min (70-130); Calcium 8.6 mg/dL (7.8-10.44); Carbon Dioxide 23 mmol/L (23-31); Chloride 102 mmol/L (98-107); Estimated GFR 50; Glucose 93 mg/dL (83-110); Potassium 2.9 mmol/L (3.5-5.1); Sodium 136 mmol/L (136-145)
[2024-02-21 14:08] LABS: INR-International Normal Ratio 1.1; Prothrombin Time 13.8 sec (12.0-14.7)
[2024-02-21 14:17] LABS: Platelet Adequacy Comment Platelets Normal
== END 2024-02-21 12:03 | disposition home or self-care (01) ==
LOC: LABBT 12:02
PROVIDERS: ATTEND Urology
DX: Z01.812 Encounter for preprocedural laboratory examination (principal); N13.5 Crossing vessel and stricture of ureter without hydronephrosis
CPT/HCPCS: 80048; 85025; 85610; 85730; 87077; 87086; 87186

== ENCOUNTER 2024-02-24 09:33 | Day surgery (SDC) | payer OTHER, MEDICAID ==
[2024-02-21 12:44] VITALS: BMI 36.6
[2024-02-24] MEDS ORDERED: Iopamidol 30 ML ONE (12:12)
[2024-02-24] MEDS ORDERED: PROPOFOL 20 ML ONE (12:19)
[2024-02-24] MEDS ORDERED: fentaNYL PF 100 MCG/2 ML SYRINGE ONE (12:19)
[2024-02-24] MEDS ORDERED: fentaNYL 50 mcg/mL 1 mL Vial ONE ×3 (12:20→13:47)
[2024-02-24] MEDS ORDERED: Lidocaine 1% PF 5 ML VIAL ONE (13:01)
[2024-02-24] MEDS ORDERED: Ondansetron PF 4 MG/2 ML Vial ONE (13:01)
[2024-02-24] MEDS ORDERED: Dexamethasone 20 MG/5 ML VIAL ONE (13:01)
[2024-02-24] MEDS ORDERED: HYDROcodone/Acetaminophen 5/325 mg Tablet ONE (14:51)
== END 2024-02-24 15:30 | disposition home or self-care (01) ==
LOC: SDC 09:33
PROVIDERS: ATTEND Urology
PROC: 0T778DZ Dilation of Left Ureter with Intraluminal Device, Via Natural or Artificial Opening Endoscopic (ICD-10-PCS; principal; 2024-02-24)
DX: N13.1 Hydronephrosis with ureteral stricture, not elsewhere classified (principal); I10 Essential (primary) hypertension; E78.00 Pure hypercholesterolemia, unspecified; Z88.6 Allergy status to analgesic agent; Z88.5 Allergy status to narcotic agent; Z98.890 Other specified postprocedural states; Z79.899 Other long term (current) drug therapy
CPT/HCPCS: 52332; 74420; C2617; J1100; J2405; J2704; J3010; Q9967

== ENCOUNTER 2025-03-09 10:41 | Outpatient (CLI) | payer OTHER ==
[2025-03-09 11:25] LABS: #Basophils 0.06 10x3/uL (0.0-0.2); #Eosinophils 0.15 10x3/uL (0.0-0.7); #Monocytes 0.64 10x3/uL (0.11-0.59); #Neutrophils 2.41 10x3/uL (1.40-6.50); %Basophils 1.0 % (0.0-1.0); %Eosinophils 2.5 % (0.0-10.0); %Lymphocytes 45.2 % (21.0-51.0); %Monocytes 10.7 % (0.0-10.0); %Neutrophils 40.4 % (42.0-75.0); Hematocrit 37.5 % (36.0-47.0); Hemoglobin 11.3 g/dL (12.0-16.0); Mean Corpuscular Hemoglobin 27.6 pg (27.0-31.0); Mean Corpuscular Volume 91.7 fL (78.0-98.0); Platelet Count 205 10x3/uL (130-400); Red Blood Cell (RBC) Count 4.09 mill/uL (4.20-5.40); White Blood Cell (WBC) Count 5.97 10x3/uL (4.8-10.8)
[2025-03-09 11:52] LABS: INR-International Normal Ratio 1.1; Prothrombin Time 14.2 sec (12.0-14.7)
[2025-03-09 11:53] LABS: Anion Gap 16 mmol/L (10-20); BUN (Urea Nitrogen) 10 mg/dL (9.8-20.1); Calc. Creatinine Clearance 0 mL/min (70-130); Calcium 9.2 mg/dL (7.8-10.44); Carbon Dioxide 18 mmol/L (23-31); Chloride 106 mmol/L (98-107); Glucose 82 mg/dL (83-110); PTT 31.0 sec (22.9-36.1); Potassium 2.9 mmol/L (3.5-5.1); Sodium 137 mmol/L (136-145)
== END 2025-03-09 10:42 | disposition home or self-care (01) ==
LOC: LABBT 10:41
PROVIDERS: ATTEND Urology
DX: Z01.812 Encounter for preprocedural laboratory examination (principal); N13.1 Hydronephrosis with ureteral stricture, not elsewhere classified
CPT/HCPCS: 80048; 85025; 85610; 85730

== ENCOUNTER 2025-03-15 08:04 | Day surgery (SDC) | payer OTHER, MEDICAID ==
[2025-03-09 16:25] VITALS: BMI 29.9
[2025-03-15] MEDS ORDERED: CEFAZOLIN 2 GM VIAL ONE (08:58)
[2025-03-15] MEDS ORDERED: PROPOFOL 20 ML ONE (09:18)
[2025-03-15] MEDS ORDERED: Lidocaine 1% PF 5 ML VIAL ONE (09:19)
[2025-03-15] MEDS ORDERED: Ondansetron PF 4 MG/2 ML Vial ONE (09:21)
[2025-03-15] MEDS ORDERED: HYDROcodone/Acetaminophen 5/325 mg Tablet ONE (10:52)
== END 2025-03-15 11:23 | disposition home or self-care (01) ==
LOC: SDC 08:04
PROVIDERS: ATTEND Urology
PROC: 0T778DZ Dilation of Left Ureter with Intraluminal Device, Via Natural or Artificial Opening Endoscopic (ICD-10-PCS; principal; 2025-03-15)
DX: N13.5 Crossing vessel and stricture of ureter without hydronephrosis (principal); I10 Essential (primary) hypertension; E78.00 Pure hypercholesterolemia, unspecified; F17.220 Nicotine dependence, chewing tobacco, uncomplicated; Z90.710 Acquired absence of both cervix and uterus; Z90.49 Acquired absence of other specified parts of digestive tract; Z88.5 Allergy status to narcotic agent; Z88.6 Allergy status to analgesic agent
CPT/HCPCS: 52332; 74420; C1769; C2617; J1100; J2704; J3010